=== PATIENT | female | born 1975 | race Caucasian/White ===

== ENCOUNTER 2016-11-28 11:38 | Emergency (ER) | payer OTHER ==
[2016-11-28 12:09] VITALS: TEMP 99.7
[2016-11-28] MEDS ORDERED: amLODIPine 5 MG TAB PO STA (13:18)
--- NOTE | 2016-11-28 13:44 | ED ---
General Adult HPI - General Chief complaint: Recheck/Abnormal Lab/Rx Stated complaint: hypertension Time Seen by Provider: 11/28/16 13:02 Source: patient Mode of arrival: ambulatory Limitations: no limitations - History of Present Illness Initial comments: Is a 41-year-old female with no past medical history presents emergency department for high blood pressure. She went to her primary doctor today and got evaluated and it was noted that her blood pressure was elevated shows she was directed emergency department. She denies any complaints. No chest pain or shortness of breath. No headache. No difficulty with urination area she did state that she had a headache last week however this is since resolved. No other complaints. - Related Data Previous Rx's Medication Instructions Recorded amLODIPine BESYLATE [Norvasc] 5 mg PO DAILY #30 tablet 11/28/16 Allergies Allergy/AdvReac Type Severity Reaction Status Date / Time No Known Allergies Allergy Verified 11/28/16 13:15 Review of Systems ROS Statement: Those systems with pertinent positive or pertinent negative responses have been documented in the HPI. ROS Other: All systems not noted in ROS Statement are negative. Past Medical History Past Medical History: No Reported History History of Any Multi-Drug Resistant Organisms: None Reported Past Surgical History: Cholecystectomy Past Psychological History: No Psychological Hx Reported Smoking Status: Current every day smoker Past Alcohol Use History: Rare Past Drug Use History: None Reported General Exam - General Exam Comments Initial Comments: Constitutional: Awake alert Appears comfortable Head: Normocephalic atraumatic Eyes: no conjunctival injection No scleral icterus EOMI Neck: No JVD Supple Heart: Regular rate rhythm normal S1-S2 no murmurs Lungs: Clear to auscultation bilaterally No wheezing No rales Abdomen: Soft nondistended nontender Extremities: Non edematous DP pulses intact Radial pulses intact Neuro: A&Ox3 No focal neurologic deficits Psych: Appropriate mood and affect Limitations: no limitations Course Vital Signs 11/28/16 11/28/16 12:04 13:27 Temperature 99.7 F H Pulse Rate 72 67 Respiratory 18 16 Rate Blood Pressure 210/119 184/99 O2 Sat by Pulse 99 97 Oximetry EKG Findings - EKG Comments: EKG Findings:: EKG showing normal sinus rhythm with a rate of 63. No ST segment changes. There is a T-wave inversion in lead 3. Other intervals are normal. No ectopy. Medical Decision Making - Medical Decision Making This is a 41-year-old female who presents emergency department for hypertension. Blood work was reviewed and unremarkable. EKG was unremarkable. Blood pressure improved after Norvasc. I'm going to start her on it once a day. She can follow-up with her primary doctor next week to get reevaluated. Told her to return if she has any chest pain, headache, or any other symptoms that she is concerned about. All questions were answered - Lab Data Result diagrams: 11/28/16 13:30 11/28/16 13:30 Lab Results 11/28/16 11/28/16 Range/Units 13:30 13:30 WBC 10.6 (3.8-10.6) k/uL RBC 4.54 (3.80-5.40) m/uL Hgb 13.5 (11.4-16.0) gm/dL Hct 40.0 (34.0-46.0) % MCV 88.2 (80.0-100.0) fL MCH 29.7 (25.0-35.0) pg MCHC 33.6 (31.0-37.0) g/dL RDW 13.9 (11.5-15.5) % Plt Count 222 (150-450) k/uL Neutrophils % 79 % Lymphocytes % 14 % Monocytes % 5 % Eosinophils % 0 % Basophils % 0 % Neutrophils # 8.3 H (1.3-7.7) k/uL Lymphocytes # 1.5 (1.0-4.8) k/uL Monocytes # 0.6 (0-1.0) k/uL Eosinophils # 0.0 (0-0.7) k/uL Basophils # 0.0 (0-0.2) k/uL Sodium 144 (137-145) mmol/L Potassium 3.8 (3.5-5.1) mmol/L Chloride 106 (98-107) mmol/L Carbon Dioxide 24 (22-30) mmol/L Anion Gap 14 mmol/L BUN 6 L (7-17) mg/dL Creatinine 0.71 (0.52-1.04) mg/dL Est GFR (MDRD) Af Amer >60 (>60 ml/min/1.73 sqM) Est GFR (MDRD) Non-Af >60 (>60 ml/min/1.73 sqM) Glucose 104 H (74-99) mg/dL Calcium 9.3 (8.4-10.2) mg/dL Disposition Clinical Impression: Hypertension Disposition: HOME SELF-CARE Condition: Stable Instructions: Hypertension (ED) Prescriptions: amLODIPine BESYLATE [Norvasc] 5 mg PO DAILY #30 tablet Referrals: Cuba Velez MD [Primary Care Provider] - 1-2 days
[2016-11-28 14:01] LABS: Basophils % (A) 0 %; CH 30.9; CHCM 35.2; Eosinophils % (A) 0 %; HDW 3.07; HGB 13.5 gm/dL (11.4-16.0); Luc # (Auto) 0.09; Luc % (Auto) 1; Lymphocytes # (A) 1.5 k/uL (1.0-4.8); Lymphocytes % (A) 14 %; MCH 29.7 pg (25.0-35.0); MCHC 33.6 g/dL (31.0-37.0); MCV 88.2 fL (80.0-100.0); Mean Platelet Volume 7.9; Monocytes # (A) 0.6 k/uL (0-1.0); Monocytes % (A) 5 %; Neutrophils # (A) 8.3 k/uL (1.3-7.7); Neutrophils % (A) 79 %; RBC 4.54 m/uL (3.80-5.40); RDW 13.9 % (11.5-15.5); WBC 10.6 k/uL (3.8-10.6); WBC (Perox) 10.69
[2016-11-28 14:15] LABS: Anion Gap 14 mmol/L; Blood Urea Nitrogen 6 mg/dL (7-17); Calcium 9.3 mg/dL (8.4-10.2); Carbon Dioxide 24 mmol/L (22-30); Chloride 106 mmol/L (98-107); Glucose 104 mg/dL (74-99); Non-African American GFR(MDRD) >60 (>60 ml/min/1.73 sqM); Potassium 3.8 mmol/L (3.5-5.1); Sodium 144 mmol/L (137-145)
[2016-11-28 14:40] VITALS: BP 160/90; PULSE 66; RESP 20
== END 2016-11-28 14:40 | disposition home or self-care (01) ==
LOC: EC 11:38
DX: F17.200 Nicotine dependence, unspecified, uncomplicated (principal); I10 Essential (primary) hypertension
CPT/HCPCS: 36415; 80048; 85025; 93005; 99283

== ENCOUNTER 2021-03-12 22:12 | Observation (INO) | payer OTHER ==
[2021-03-12] MEDS ORDERED: MORPHINE SULFATE 2 MG/ML SYRINGE IVP STA (22:41)
[2021-03-12] MEDS ORDERED: SODIUM CHLORIDE 0.9% 1,000 ML IV STA (22:41)
--- NOTE | 2021-03-12 23:30 | XR ---
EXAMINATION TYPE: XR KUB DATE OF EXAM: 03/12/2021 COMPARISON: NONE HISTORY: Abdominal pain TECHNIQUE: 2 views upright FINDINGS: There is no sign of intestinal obstruction or pneumoperitoneum. Fecal pattern is normal. Th ere are clips from cholecystectomy. Lung bases are clear. There are no pathologic calcifications over the kidneys. IMPRESSION: Nonacute abdomen.
[2021-03-12 23:56] LABS: Anisocytosis Slight; Basophils % (A) 0 %; Eosinophils # (A) 0.1 k/uL (0-0.7); Eosinophils % (A) 1 %; HCT 34.8 % (34.0-46.0); HGB 11.4 gm/dL (11.4-16.0); Hypochromasia Slight; Lymphocytes % (A) 6 %; MCH 28.9 pg (25.0-35.0); MCHC 32.9 g/dL (31.0-37.0); MCV 87.7 fL (80.0-100.0); Mean Platelet Volume 7.3; Monocytes # (A) 0.5 k/uL (0-1.0); Monocytes % (A) 3 %; Neutrophils % (A) 90 %; Platelet Count 259 k/uL (150-450); Poikilocytosis Slight; RBC 3.96 m/uL (3.80-5.40); RDW 16.1 % (11.5-15.5); WBC 15.6 k/uL (3.8-10.6)
--- NOTE | 2021-03-13 00:03 | ED ---
Abdominal Pain HPI - General Chief Complaint: Abdominal Pain Stated Complaint: abd pain Time Seen by Provider: 03/12/21 22:19 Source: patient, family, RN notes reviewed Mode of arrival: ambulatory Limitations: no limitations - History of Present Illness Initial Comments: 45-year-old white female presents to the emergency department with her sister complaining of abdominal pain for one week off and on. Patient states she was seen at [facility] last Saturday and was told she has mild ascites by CT. Patient states they prescribed her Xanax and [place] but she has not taken it. Patient states that the pain is diffuse shooting and feels tight, epigastric at times. Patient states she cannot get comfortable. She seen Dr. Garcia her PMD Saturday and was referred for blood work which she did not complete and also given a GI referral. Patient has history of hypertension, iron deficiency anemia, was recently diagnosed with a melanoma on her left thigh. Surgical history of cholecystectomy in 2006. Patient takes lisinopril and hydrochlorothiazide along with iron daily. MD Complaint: abdominal pain (Sister) -: week(s) (1) Location: diffuse Radiation: epigastric Migration to: no migration Severity scale (1-10): 9 Quality: other Consistency: intermittent Improves With: nothing Worsens With: nothing Associated Symptoms: diarrhea - Related Data Previous Rx's Medication Instructions Recorded amLODIPine BESYLATE [Norvasc] 5 mg PO DAILY #30 tablet 11/28/16 Allergies Allergy/AdvReac Type Severity Reaction Status Date / Time No Known Allergies Allergy Verified 03/12/21 22:17 Review of Systems ROS Statement: Those systems with pertinent positive or pertinent negative responses have been documented in the HPI. ROS Other: All systems not noted in ROS Statement are negative. Past Medical History Past Medical History: Cancer, Hypertension Additional Past Medical History / Comment(s): melanoma History of Any Multi-Drug Resistant Organisms: None Reported Past Surgical History: Cholecystectomy Past Psychological History: No Psychological Hx Reported Smoking Status: Never smoker Past Alcohol Use History: Rare Past Drug Use History: None Reported General Exam Limitations: no limitations General appearance: alert, in no apparent distress Head exam: Present: atraumatic, normocephalic, normal inspection Eye exam: Present: normal appearance, PERRL, EOMI. Absent: scleral icterus, co njunctival injection, periorbital swelling ENT exam: Present: normal exam, normal oropharynx, mucous membranes moist Neck exam: Present: normal inspection, full ROM. Absent: tenderness, meningismus, lymphadenopathy, thyromegaly Respiratory exam: Present: normal lung sounds bilaterally. Absent: respiratory distress, wheezes, rales, rhonchi, stridor, decreased breath sounds Cardiovascular Exam: Present: normal rhythm, tachycardia GI/Abdominal exam: Present: soft, tenderness, normal bowel sounds. Absent: distended, guarding, rebound, rigid, organomegaly, mass, pulsatile mass, hernia Extremities exam: Present: normal inspection, full ROM, normal capillary refill. Absent: tenderness, pedal edema, joint swelling, calf tenderness Back exam: Present: normal inspection, full ROM. Absent: CVA tenderness (R), CVA tenderness (L) Neurological exam: Present: alert, oriented X3, CN II-XII intact Psychiatric exam: Present: anxious Skin exam: Present: warm, dry, intact, normal color. Absent: rash, cyanosis, diaphoretic, erythema Course Vital Signs 03/12/21 22:14 Temperature 98.9 F Pulse Rate 106 H Respiratory 20 Rate Blood Pressure 116/82 O2 Sat by Pulse 99 Oximetry Medical Decision Making - Medical Decision Making Patient's troponin is 0.012, liver enzymes are within normal limits, however WBC count is 15.6 with a left shift. Lactic acid 1.6, Patient states WBC count at [facility] last Saturday was at 11. Patient has been having abnormal vaginal bleeding for 4 months and is being seen by gynecology, recently been put on control pills to help suppress the bleeding. Patient remains uncomfortable and can't find a position of comfort stating that the pain is now in her lower back. CT shows a moderate amount of free fluid in the pelvis and abdomen extending to the right side subphrenic space. The appendix is not directly seen with possibility of appendicitis with rupture. There is no free air. Patient will be admitted with surgical consult. Case discussed with Dr. Cristobal. - Lab Data Result diagrams: 03/12/21 23:48 03/12/21 23:48 Lab Results 03/12/21 03/12/21 03/12/21 Range/Units 23:48 23:48 23:48 WBC 15.6 H (3.8-10.6) k/uL RBC 3.96 (3.80-5.40) m/uL Hgb 11.4 (11.4-16.0) gm/dL Hct 34.8 (34.0-46.0) % MCV 87.7 (80.0-100.0) fL MCH 28.9 (25.0-35.0) pg MCHC 32.9 (31.0-37.0) g/dL RDW 16.1 H (11.5-15.5) % Plt Count 259 (150-450) k/uL MPV 7.3 Neutrophils % 90 % Lymphocytes % 6 % Monocytes % 3 % Eosinophils % 1 % Basophils % 0 % Neutrophils # 14.0 H (1.3-7.7) k/uL Lymphocytes # 1.0 (1.0-4.8) k/uL Monocytes # 0.5 (0-1.0) k/uL Eosinophils # 0.1 (0-0.7) k/uL Basophils # 0.0 (0-0.2) k/uL Hypochromasia Slight Poikilocytosis Slight Anisocytosis Slight PT 10.1 (9.0-12.0) sec INR 0.9 (<1.2) APTT 19.1 L (22.0-30.0) sec Sodium 135 L (137-145) mmol/L Potassium 4.0 (3.5-5.1) mmol/L Chloride 101 (98-107) mmol/L Carbon Dioxide 24 (22-30) mmol/L Anion Gap 10 mmol/L BUN 14 (7-17) mg/dL Creatinine 0.83 (0.52-1.04) mg/dL Est GFR (CKD-EPI)AfAm >90 (>60 ml/min/1.73 sqM) Est GFR (CKD-EPI)NonAf 86 (>60 ml/min/1.73 sqM) Glucose 139 H (74-99) mg/dL Plasma Lactic Acid Morales (0.7-2.0) mmol/L Calcium 8.8 (8.4-10.2) mg/dL Total Bilirubin 0.7 (0.2-1.3) mg/dL AST 21 (14-36) U/L ALT 20 (4-34) U/L Alkaline Phosphatase 70 (38-126) U/L Troponin I (0.000-0.034) ng/mL Total Protein 6.6 (6.3-8.2) g/dL Albumin 3.9 (3.5-5.0) g/dL Amylase 38 (30-110) U/L Lipase 56 (23-300) U/L 03/12/21 03/12/21 Range/Units 23:48 23:48 WBC (3.8-10.6) k/uL RBC (3.80-5.40) m/uL Hgb (11.4-16.0) gm/dL Hct (34.0-46.0) % MCV (80.0-100.0) fL MCH (25.0-35.0) pg MCHC (31.0-37.0) g/dL RDW (11.5-15.5) % Plt Count (150-450) k/uL MPV Neutrophils % % Lymphocytes % % Monocytes % % Eosinophils % % Basophils % % Neutrophils # (1.3-7.7) k/uL Lymphocytes # (1.0-4.8) k/uL Monocytes # (0-1.0) k/uL Eosinophils # (0-0.7) k/uL Basophils # (0-0.2) k/uL Hypochromasia Poikilocytosis Anisocytosis PT (9.0-12.0) sec INR (<1.2) APTT (22.0-30.0) sec Sodium (137-145) mmol/L Potassium (3.5-5.1) mmol/L Chloride (98-107) mmol/L Carbon Dioxide (22-30) mmol/L Anion Gap mmol/L BUN (7-17) mg/dL Creatinine (0.52-1.04) mg/dL Est GFR (CKD-EPI)AfAm (>60 ml/min/1.73 sqM) Est GFR (CKD-EPI)NonAf (>60 ml/min/1.73 sqM) Glucose (74-99) mg/dL Plasma Lactic Acid Morales 1.4 (0.7-2.0) mmol/L Calcium (8.4-10.2) mg/dL Total Bilirubin (0.2-1.3) mg/dL AST (14-36) U/L ALT (4-34) U/L Alkaline Phosphatase (38-126) U/L Troponin I <0.012 (0.000-0.034) ng/mL Total Protein (6.3-8.2) g/dL Albumin (3.5-5.0) g/dL Amylase (30-110) U/L Lipase (23-300) U/L Disposition Clinical Impression: Acute appendicitis Disposition: ADMITTED IP TO THIS HOSP Condition: Fair Is patient prescribed a controlled substance at d/c from ED?: No Referrals: Dexter Green MD [Primary Care Provider] - 1-2 days Decision Date: 03/13/21 Decision Time: 01:42
[2021-03-13 00:06] LABS: ALT 20 U/L (4-34); AST 21 U/L (14-36); African American GFR (CKD) >90 (>60 ml/min/1.73 sqM); Albumin 3.9 g/dL (3.5-5.0); Alkaline Phosphatase 70 U/L (38-126); Amylase 38 U/L (30-110); Anion Gap 10 mmol/L; Blood Urea Nitrogen 14 mg/dL (7-17); Calcium 8.8 mg/dL (8.4-10.2); Carbon Dioxide 24 mmol/L (22-30); Chloride 101 mmol/L (98-107); Glucose 139 mg/dL (74-99); Lipase 56 U/L (23-300); Non-African American GFR(CKD) 86 (>60 ml/min/1.73 sqM); Sodium 135 mmol/L (137-145); Total Bilirubin 0.7 mg/dL (0.2-1.3); Total Protein 6.6 g/dL (6.3-8.2)
[2021-03-13 00:15] LABS: INR 0.9 (<1.2); Prothrombin Time 10.1 sec (9.0-12.0)
[2021-03-13 00:17] LABS: Partial Thromboplastin Time 19.1 sec (22.0-30.0)
--- NOTE | 2021-03-13 01:26 | CT ---
EXAMINATION TYPE: CT abdomen pelvis wo con DATE OF EXAM: 03/13/2021 COMPARISON: None HISTORY: pain CT DLP: 743.8 mGycm Automated exposure control for dose reduction was used. Images obtained from the diaphragm to the floor the pelvis with no contrast. FINDINGS: There is some patchy atelectasis at the lung bases. Heart is borderline enlarged. There is no pericar dial effusion. There is no pleural effusion. Liver and spleen are intact. The bile ducts are not dilated. There is clips from cholecystectomy. The re is no evidence of pancreatic mass. Stomach is intact. There is no adrenal mass. Kidneys have normal size. There is no hydronephrosis. Ureters are not dilat ed. There is no retroperitoneal adenopathy. Bladder distends smoothly. Uterus is anteverted. There is free fluid in the pelvis. There is also some fluid around the liver and in the paracolic gutters. Fl uid density is 13 -19. This is nonspecific. There is no evidence of a bowel obstruction. I see no free air. There is no mesenteric edema. There i s no inguinal hernia. The lumbar vertebra have normal alignment. Disc spaces are fairly normal. Bony pelvis is intact. The hip joints are intact. Appendix is not identified. The terminal ileum appears normal. There is fluid around the cecum. IMPRESSION: No evidence of renal stone or obstruction. There is moderate amount of free fluid in the pelvis and a bdomen and extending up right side to the subphrenic space. Fluid is more on the right side. Appendix not directly seen. No free air. I would consider the possibility of appendicitis with rupture. Other possibilities include PID and ruptured ectopic . Patient has negative test. Patchy atelectasis at the lung bases.
[2021-03-13] MEDS ORDERED: AMPICILLIN-SULBACTAM 3 GM in SODIUM CHLORIDE 0.9% 100 ML IVPB STA (01:45)
[2021-03-13] MEDS ORDERED: NALOXONE 0.4 MG/ML 1 ML VIAL IV PRN (01:46)
[2021-03-13] MEDS ORDERED: MORPHINE SULFATE 4 MG/ML SYRINGE IV PRN (01:46)
[2021-03-13] MEDS ORDERED: ONDANSETRON 4 MG/2 ML VIAL IVP PRN (01:46)
[2021-03-13] MEDS: SODIUM CHLORIDE 0.9% 1,000 ML IV SCH ×3 (02:13→15:29)
[2021-03-13 07:54] LABS: ALT 17 U/L (4-34); AST 16 U/L (14-36); African American GFR (CKD) >90 (>60 ml/min/1.73 sqM); Albumin 3.3 g/dL (3.5-5.0); Albumin/Globulin Ratio 1.3; Alkaline Phosphatase 55 U/L (38-126); Anion Gap 5 mmol/L; Blood Urea Nitrogen 13 mg/dL (7-17); Calcium 7.8 mg/dL (8.4-10.2); Carbon Dioxide 26 mmol/L (22-30); Chloride 104 mmol/L (98-107); Globulin 2.5 g/dL; Glucose 116 mg/dL (74-99); Non-African American GFR(CKD) >90 (>60 ml/min/1.73 sqM); Potassium 3.6 mmol/L (3.5-5.1); Sodium 135 mmol/L (137-145); Total Bilirubin 0.5 mg/dL (0.2-1.3); Total Protein 5.8 g/dL (6.3-8.2)
[2021-03-13 07:55] LABS: Anisocytosis Slight; Basophils % (A) 0 %; Eosinophils # (A) 0.1 k/uL (0-0.7); Eosinophils % (A) 1 %; Hypochromasia Slight; Lymphocytes # (A) 1.6 k/uL (1.0-4.8); Lymphocytes % (A) 19 %; MCH 29.8 pg (25.0-35.0); MCHC 33.9 g/dL (31.0-37.0); Mean Platelet Volume 7.4; Monocytes # (A) 0.4 k/uL (0-1.0); Monocytes % (A) 5 %; Neutrophils # (A) 6.4 k/uL (1.3-7.7); Neutrophils % (A) 74 %; Platelet Count 223 k/uL (150-450); Poikilocytosis Slight; RBC 3.19 m/uL (3.80-5.40); RDW 16.2 % (11.5-15.5); WBC 8.6 k/uL (3.8-10.6)
[2021-03-13 08:14] LABS: HGB 9.5 gm/dL (11.4-16.0)
[2021-03-13] MEDS ORDERED: ALPRAZolam 0.25 MG TAB PO PRN (11:02)
--- NOTE | 2021-03-13 12:49 | P.GSCN ---
History of Present Illness Consult date: 03/13/21 History of present illness: 45 year old female who was recently diagnosed with melanoma and is in the process of getting it worked up as an outpatient at [facility] Presents to hospital with generalized abdominal discomfort some mild nausea and emesis. No change in BM no history of fever. No recent illness. Patient states she was at [facility] one week ago and was told she had ascities. She denies alcohol use. CT today shows fluid throughout abdomen, no free air, but appendix was not visualized. Because appendix was not visualized general surgery was consulted as radiology report stated appendicitis can not be ruled out Past Medical History Past Medical History: Cancer, Hypertension Additional Past Medical History / Comment(s): melanoma History of Any Multi-Drug Resistant Organisms: None Reported Past Surgical History: Cholecystectomy Past Psychological History: No Psychological Hx Reported Smoking Status: Never smoker Past Alcohol Use History: Rare Past Drug Use History: None Reported Medications and Allergies Home Medications Medication Instructions Recorded Confirmed Type ALPRAZolam [Xanax] 0.25 mg PO TID PRN 03/13/21 03/13/21 History Ferrous Sulfate [Feosol] 325 mg PO DAILY@1200 03/13/21 03/13/21 History HYDROcodone/APAP 5-325MG [[place] 1 tab PO Q6HR PRN 03/13/21 03/13/21 History 5-325] Lisinopril [Prinivil] 10 mg PO DAILY 03/13/21 03/13/21 History [place]-Liny[place] 1 tab PO DAILY@1200 03/13/21 03/13/21 History hydroCHLOROthiazide 25 mg PO DAILY 03/13/21 03/13/21 History Allergies Allergy/AdvReac Type Severity Reaction Status Date / Time No Known Allergies Allergy Verified 03/13/21 07:08 Surgical - Exam Osteopathic Statement: *. No significant issues noted on an osteopathic structural exam other than those noted in the History and Physical/Consult. Vital Signs Temp Pulse Resp BP Pulse Ox 98.9 F 106 H 20 116/82 99 03/12/21 22:14 03/12/21 22:14 03/12/21 22:14 03/12/21 22:14 03/12/21 22:14 - General well developed, well nourished, no distress - Neck trachea midline - Respiratory normal expansion, normal respiratory effort - Abdomen S/NT/ND no RRG Abdomen: soft - Genitourinary No palpable lyphadenopathy in groin - Neurologic normal coordination, normal sensation - Psychiatric oriented to time, oriented to person, oriented to place Results - Labs 03/13/21 07:30 03/13/21 07:30 Abnormal Lab Results - Last 24 Hours (Table) 03/12/21 03/12/21 03/12/21 Range/Units 23:48 23:48 23:48 WBC 15.6 H (3.8-10.6) k/uL RBC (3.80-5.40) m/uL Hgb (11.4-16.0) gm/dL Hct (34.0-46.0) % RDW 16.1 H (11.5-15.5) % Neutrophils # 14.0 H (1.3-7.7) k/uL APTT 19.1 L (22.0-30.0) sec Sodium 135 L (137-145) mmol/L Glucose 139 H (74-99) mg/dL Calcium (8.4-10.2) mg/dL Total Protein (6.3-8.2) g/dL Albumin (3.5-5.0) g/dL 03/13/21 03/13/21 Range/Units 07:30 07:30 WBC (3.8-10.6) k/uL RBC 3.19 L (3.80-5.40) m/uL Hgb 9.5 L D (11.4-16.0) gm/dL Hct 28.0 L (34.0-46.0) % RDW 16.2 H (11.5-15.5) % Neutrophils # (1.3-7.7) k/uL APTT (22.0-30.0) sec Sodium 135 L (137-145) mmol/L Glucose 116 H (74-99) mg/dL Calcium 7.8 L (8.4-10.2) mg/dL Total Protein 5.8 L (6.3-8.2) g/dL Albumin 3.3 L (3.5-5.0) g/dL Diabetes panel 03/12/21 03/13/21 Range/Units 23:48 07:30 Sodium 135 L 135 L (137-145) mmol/L Potassium 4.0 3.6 (3.5-5.1) mmol/L Chloride 101 104 (98-107) mmol/L Carbon Dioxide 24 26 (22-30) mmol/L BUN 14 13 (7-17) mg/dL Creatinine 0.83 0.72 (0.52-1.04) mg/dL Glucose 139 H 116 H (74-99) mg/dL Calcium 8.8 7.8 L (8.4-10.2) mg/dL AST 21 16 (14-36) U/L ALT 20 17 (4-34) U/L Alkaline Phosphatase 70 55 (38-126) U/L Total Protein 6.6 5.8 L (6.3-8.2) g/dL Albumin 3.9 3.3 L (3.5-5.0) g/dL Calcium panel 03/12/21 03/13/21 Range/Units 23:48 07:30 Calcium 8.8 7.8 L (8.4-10.2) mg/dL Albumin 3.9 3.3 L (3.5-5.0) g/dL Pituitary panel 03/12/21 03/13/21 Range/Units 23:48 07:30 Sodium 135 L 135 L (137-145) mmol/L Potassium 4.0 3.6 (3.5-5.1) mmol/L Chloride 101 104 (98-107) mmol/L Carbon Dioxide 24 26 (22-30) mmol/L BUN 14 13 (7-17) mg/dL Creatinine 0.83 0.72 (0.52-1.04) mg/dL Glucose 139 H 116 H (74-99) mg/dL Calcium 8.8 7.8 L (8.4-10.2) mg/dL Adrenal panel 03/12/21 03/13/21 Range/Units 23:48 07:30 Sodium 135 L 135 L (137-145) mmol/L Potassium 4.0 3.6 (3.5-5.1) mmol/L Chloride 101 104 (98-107) mmol/L Carbon Dioxide 24 26 (22-30) mmol/L BUN 14 13 (7-17) mg/dL Creatinine 0.83 0.72 (0.52-1.04) mg/dL Glucose 139 H 116 H (74-99) mg/dL Calcium 8.8 7.8 L (8.4-10.2) mg/dL Total Bilirubin 0.7 0.5 (0.2-1.3) mg/dL AST 21 16 (14-36) U/L ALT 20 17 (4-34) U/L Alkaline Phosphatase 70 55 (38-126) U/L Total Protein 6.6 5.8 L (6.3-8.2) g/dL Albumin 3.9 3.3 L (3.5-5.0) g/dL Assessment and Plan Assessment: Ascities New diagnosis of melanoma in left leg Plan: Patient does not have physical exam consistent with appendicitis nor does she have CT showing clinical signs of appendicitis. Concern for new finding of ascities in patient who is not a drinker and has new diagnosis of melanoma. No liver mets seen on CT however. Recommend ABX and serial abdominal exam. No plan for acute surgical intervention.
[2021-03-13] MEDS: FERROUS SULFATE 325 MG TAB PO SCH ×2 (13:04→13:09)
[2021-03-13] MEDS: AMPICILLIN-SULBACTAM 3 GM in SODIUM CHLORIDE 0.9% 100 ML IVPB SCH ×2 (13:05→17:46)
--- NOTE | 2021-03-13 13:20 | P.HPIM ---
History of Present Illness 45-year-old pleasant female came in with the complaints of severe abdominal pain started 2 days ago which improved at this time sharp in nature 8/and in severity. Patient was having some nausea vomiting as well. Patient had an abdo roseanna CT which showed fluid in the abdomen etiology of this fluid is not clear. Patient had ovarian cyst that was seen about a week ago when she presented with similar symptoms to [facility]. Appendix with was not visualized because of which are radiologists believe patient may have appendicitis although patient's abdomen is soft no rebound or rigidity no tenderness or pain improved at this time patient doesn't have any fever but had leukocytosis which resolved at this time. Patient's hemoglobin was 11.4 came down to 9.5 this appears to be hemodynamically 3 affect without any evidence of bleeding. Review of Systems REVIEW OF SYSTEMS: CONSTITUTIONAL: No fever, no malaise, no fatigue. HEENT: No recent visual problems or hearing problems. Denied any sore throat. CARDIOVASCULAR: No chest pain, orthopnea, PND, no palpitations, no syncope. PULMONARY: No shortness of breath, no cough, no hemoptysis. GASTROINTESTINAL: As mentioned in HPI NEUROLOGICAL: No headaches, no weakness, no numbness. HEMATOLOGICAL: Denies any bleeding or petechiae. GENITOURINARY: Denies any burning micturition, frequency, or urgency. MUSCULOSKELETAL/RHEUMATOLOGICAL: Denies any joint pain, swelling, or any muscle pain. ENDOCRINE: Denies any polyuria or polydipsia. The rest of the 14-point review of systems is negative. Past Medical History Past Medical History: Cancer, Hypertension Additional Past Medical History / Comment(s): melanoma History of Any Multi-Drug Resistant Organisms: None Reported Past Surgical History: Cholecystectomy Past Psychological History: No Psychological Hx Reported Smoking Status: Never smoker Past Alcohol Use History: Rare Past Drug Use History: None Reported Medications and Allergies Home Medications Medication Instructions Recorded Confirmed Type ALPRAZolam [Xanax] 0.25 mg PO TID PRN 03/13/21 03/13/21 History Ferrous Sulfate [Feosol] 325 mg PO DAILY@1200 03/13/21 03/13/21 History HYDROcodone/APAP 5-325MG [[place] 1 tab PO Q6HR PRN 03/13/21 03/13/21 History 5-325] Lisinopril [Prinivil] 10 mg PO DAILY 03/13/21 03/13/21 History [place]-Linyah 1 tab PO DAILY@1200 03/13/21 03/13/21 History hydroCHLOROthiazide 25 mg PO DAILY 03/13/21 03/13/21 History Allergies Allergy/AdvReac Type Severity Reaction Status Date / Time No Known Allergies Allergy Verified 03/13/21 07:08 Physical Exam Vitals: Vital Signs Temp Pulse Resp BP Pulse Ox 03/13/21 07:42 98.6 F 78 24 154/84 96 03/13/21 05:47 76 16 114/70 99 03/12/21 22:14 98.9 F 106 H 20 116/82 99 Intake and Output 03/12/21 03/13/21 03/13/21 22:59 06:59 14:59 Other: Weight 97.522 kg PHYSICAL EXAMINATION: GENERAL: The patient is alert and oriented x3, not in any acute distress. Well developed, well nourished. HEENT: Pupils are round and equally reacting to light. EOMI. No scleral icterus. No conjunctival pallor. Normocephalic, atraumatic. No pharyngeal erythema. No thyromegaly. CARDIOVASCULAR: S1 and S2 present. No murmurs, rubs, or gallops. PULMONARY: Chest is clear to auscultation, no wheezing or crackles. ABDOMEN: Soft, nontender, nondistended, normoactive bowel sounds. No palpable organomegaly. MUSCULOSKELETAL: No joint swelling or deformity. EXTREMITIES: No cyanosis, clubbing, or pedal edema. NEUROLOGICAL: Gross neurological examination did not reveal any focal deficits. SKIN: No rashes. Results CBC & Chem 7: 03/13/21 07:30 03/13/21 07:30 Labs: Abnormal Lab Results - Last 24 Hours (Table) 03/12/21 03/12/21 03/12/21 Range/Units 23:48 23:48 23:48 WBC 15.6 H (3.8-10.6) k/uL RBC (3.80-5.40) m/uL Hgb (11.4-16.0) gm/dL Hct (34.0-46.0) % RDW 16.1 H (11.5-15.5) % Neutrophils # 14.0 H (1.3-7.7) k/uL APTT 19.1 L (22.0-30.0) sec Sodium 135 L (137-145) mmol/L Glucose 139 H (74-99) mg/dL Calcium (8.4-10.2) mg/dL Total Protein (6.3-8.2) g/dL Albumin (3.5-5.0) g/dL 03/13/21 03/13/21 Range/Units 07:30 07:30 WBC (3.8-10.6) k/uL RBC 3.19 L (3.80-5.40) m/uL Hgb 9.5 L D (11.4-16.0) gm/dL Hct 28.0 L (34.0-46.0) % RDW 16.2 H (11.5-15.5) % Neutrophils # (1.3-7.7) k/uL APTT (22.0-30.0) sec Sodium 135 L (137-145) mmol/L Glucose 116 H (74-99) mg/dL Calcium 7.8 L (8.4-10.2) mg/dL Total Protein 5.8 L (6.3-8.2) g/dL Albumin 3.3 L (3.5-5.0) g/dL Assessment and Plan Plan: Abdominal pain which resolved and patient has moderate ascites: Etiology of this ascites is not clear may be a ruptured ovarian cyst. Although patient doesn't appear to have appendicitis patient was evaluated by general surgery. We will discuss with radiologist regarding the the possibility of also some guided paracentesis to analyze the ascites fluid. Neurosurgery is recommending monitoring with antibiotics. -Recent diagnosis of melanoma. -Hypertension: Patient will be resumed on home medications Heparin DVT prophylaxis early ambulation
[2021-03-13 13:30] LABS: Anisocytosis Slight; HGB 9.7 gm/dL (11.4-16.0); Hypochromasia Slight; MCH 29.5 pg (25.0-35.0); MCHC 33.5 g/dL (31.0-37.0); MCV 87.9 fL (80.0-100.0); Mean Platelet Volume 7.1; Platelet Count 235 k/uL (150-450); Poikilocytosis Slight; RDW 16.1 % (11.5-15.5); WBC 8.6 k/uL (3.8-10.6)
[2021-03-13 14:45] LABS: Appearance,Urine Cloudy (Clear); Bacteria,Urine Rare /hpf; Bilirubin,Urine Negative (Negative); Blood,Urine Moderate (Negative); Color,Urine Yellow; Glucose,Urine (UA) Negative (Negative); Hyaline Casts,Urine 1 /lpf (0-2); Ketones,Urine Negative (Negative); Leukocyte Esterase,Urine Moderate (Negative); Mucus,Urine Few /hpf; Nitrite,Urine Negative (Negative); PH, Urine 5.5 (5.0-8.0); Protein,Urine Trace (Negative); RBC,Urine 22 /hpf (0-5); Specific Gravity,Urine 1.026 (1.001-1.035); Squamous Epithelial Cell,Urine 8 /hpf (0-4); Urobilinogen,Urine <2.0 mg/dL (<2.0); WBC,Urine 18 /hpf (0-5)
--- NOTE | 2021-03-13 16:23 | US ---
EXAMINATION TYPE: US abdomen limited DATE OF EXAM: 03/13/2021 COMPARISON: NONE CLINICAL HISTORY: Ascites. Evaluate for ascites No evidence of significant fluid within abdominal quadrants, minimal pocket = 2.3cm within RLQ IMPRESSION: 1. Small pocket of ascites in the right lower quadrant measuring 2.3 cm.
[2021-03-14] MEDS: AMPICILLIN-SULBACTAM 3 GM in SODIUM CHLORIDE 0.9% 100 ML IVPB SCH ×3 (00:20→11:55)
[2021-03-14] MEDS: SODIUM CHLORIDE 0.9% 1,000 ML IV SCH ×2 (02:19→10:58)
[2021-03-14 03:48] VITALS: BP 98/62
[2021-03-14 07:38] VITALS: PULSE 68; RESP 16; TEMP 98.2
[2021-03-14] MEDS ORDERED: lisinopriL 10 MG TAB PO SCH (09:00)
--- NOTE | 2021-03-14 10:51 | P.PN ---
Subjective Progress Note Date: 03/14/21 Patient is feeling much better today she denies any abdominal pain. She's tolerating a diet she has no complaints Objective - Vital Signs Vital signs: Vital Signs Temp 98.2 F 03/14/21 07:00 Pulse 68 03/14/21 07:00 Resp 16 03/14/21 08:00 BP 98/62 03/14/21 07:00 Pulse Ox 95 03/14/21 07:00 Intake & Output 03/13/21 03/14/21 03/14/21 18:59 06:59 18:59 Intake Total 130 200 Balance 130 200 Weight 97.522 kg Intake: IV 130 Sodium Chloride 0.9% 1, 130 000 ml @ 130 mls/hr IV . Q7H42M [facility] Rx#:[id number] Oral 200 Other: Voiding Method Toilet - Constitutional General appearance: Present: cooperative - Cardiovascular Rhythm: regular - Gastrointestinal Gastrointestinal Comment(s): Soft nontender nondistended - Labs CBC & Chem 7: 03/13/21 13:14 03/13/21 07:30 Labs: Abnormal Lab Results - Last 24 Hours (Table) 03/13/21 03/13/21 Range/Units 13:14 14:33 RBC 3.30 L (3.80-5.40) m/uL Hgb 9.7 L (11.4-16.0) gm/dL Hct 29.0 L (34.0-46.0) % RDW 16.1 H (11.5-15.5) % Urine Appearance Cloudy H (Clear) Urine Protein Trace H (Negative) Urine Blood Moderate H (Negative) Ur Leukocyte Esterase Moderate H (Negative) Urine RBC 22 H (0-5) /hpf Urine WBC 18 H (0-5) /hpf Ur Squamous Epith Cells 8 H (0-4) /hpf Urine Bacteria Rare H (None) /hpf Urine Mucus Few H (None) /hpf Microbiology - Last 24 Hours (Table) 03/13/21 14:33 Urine Culture - Preliminary Urine,Voided Assessment and Plan Assessment: Ascities New diagnosis of melanoma in left leg Plan: Patient's feeling better today. White count was normal today. This is unlikely to be due secondary to appendicitis. No plans for any surgical management at this time.
[2021-03-14] MEDS: FERROUS SULFATE 325 MG TAB PO SCH (11:54)
--- NOTE | 2021-03-14 13:11 | P.DS ---
Providers Date of admission: 03/13/21 01:32 Attending physician: Alethea Clark Consults: 03/13/21 01:48 Consult Physician Urgent Consulting Provider: Kael Ventura Consult Reason/Comments: appendicitis Do you want consulting provider notified?: Yes Primary care physician: [facility] Course: 45-year-old pleasant female came in with the complaints of severe abdominal pain started 2 days ago which improved at this time sharp in nature 8/and in severity. Patient was having some nausea vomiting as well. Patient had an abdominal CT which showed fluid in the abdomen etiology of this fluid is not clear. Patient had ovarian cyst that was seen about a week ago when she presented with similar symptoms to [facility]. Appendix with was not visualized because of which are radiologists believe patient may have appendicitis although patient's abdomen is soft no rebound or rigidity no tenderness or pain improved at this time patient doesn't have any fever but had leukocytosis which resolved at this time. Patient's hemoglobin was 11.4 came down to 9.5 this appears to be hemodynamically 3 affect without any evidence of bleeding. 03/14/2021 Because of ascites in the abdomen and obtain an ultrasound for possible ultrasound-guided paracentesis. Although patient appears to have only 2.5 centimeter pocket of fluid. Patient most probably ruptured ovarian cyst. Patient will not need any antibiotics discussed with the jaw surgery patient will be discharged today. Patient blood pressures are low patient I was asked to check the blood pressures 3 times a day and maintain a diary and take it to PCPs office. Patient may need a very low-dose of lisinopril hydrochlorothiazide will be discontinued for now will hold off on hydrochlorothiazide as well. PHYSICAL EXAMINATION: GENERAL: The patient is alert and oriented x3, not in any acute distress. Well developed, well nourished. HEENT: Pupils are round and equally reacting to light. EOMI. No scleral icterus. No conjunctival pallor. Normocephalic, atraumatic. No pharyngeal erythema. No thyromegaly. CARDIOVASCULAR: S1 and S2 present. No murmurs, rubs, or gallops. PULMONARY: Chest is clear to auscultation, no wheezing or crackles. ABDOMEN: Soft, nontender, nondistended, normoactive bowel sounds. No palpable organomegaly. MUSCULOSKELETAL: No joint swelling or deformity. EXTREMITIES: No cyanosis, clubbing, or pedal edema. NEUROLOGICAL: Gross neurological examination did not reveal any focal deficits. SKIN: No rashes. Assessment and Plan Plan: Abdominal pain which resolved probably due to ruptured ovarian cyst patient will not require any antibiotics -Recent diagnosis of melanoma. -Hypertension: Management as mentioned above Patient Condition at Discharge: Fair Plan - Discharge Summary Discharge Rx Participant: No New Discharge Prescriptions: Continue [place] 1 tab PO DAILY@1200 ALPRAZolam [Xanax] 0.25 mg PO TID PRN PRN Reason: Anxiety HYDROcodone/APAP 5-325MG [[place] 5-325] 1 tab PO Q6HR PRN PRN Reason: Pain Ferrous Sulfate [Iron (65 MG Elemental)] 325 mg PO DAILY@1200 Discontinued hydroCHLOROthiazide 25 mg PO DAILY Lisinopril [Prinivil] 10 mg PO DAILY Discharge Medication List ALPRAZolam [Xanax] 0.25 mg PO TID PRN 03/13/21 [History] Ferrous Sulfate [Iron (65 MG Elemental)] 325 mg PO DAILY@1200 03/13/21 [History] HYDROcodone/APAP 5-325MG [[place] 5-325] 1 tab PO Q6HR PRN 03/13/21 [History] [place] 1 tab PO DAILY@1200 03/13/21 [History] Follow up Appointment(s)/Referral(s): Dexter Green MD [Primary Care Provider] - 3 Days Discharge Disposition: HOME SELF-CARE
== END 2021-03-14 13:46 | disposition home or self-care (01) ==
LOC: EC 22:12 → 6NMEDSUR 03-13 01:32
PROVIDERS: ADMIT Internal Medicine; ATTEND Internal Medicine
DX: R10.9 Unspecified abdominal pain (principal); N83.209 Unspecified ovarian cyst, unspecified side; R18.8 Other ascites; C43.72 Malignant melanoma of left lower limb, including hip; J98.11 Atelectasis; R11.2 Nausea with vomiting, unspecified; I10 Essential (primary) hypertension; Z20.822 Contact with and (suspected) exposure to COVID-19; Z79.3 Long term (current) use of hormonal contraceptives; Z79.899 Other long term (current) drug therapy; Z90.49 Acquired absence of other specified parts of digestive tract
CPT/HCPCS: 96366 ×2; 96365; 96375; 99285; 36415; 93005; 80053 ×2; 82150; 83605; 83690; 84484; 85025 ×2; 85027; 85610; 85730; 81001; 87086; 87635; 74018; 76705; 74176; G0378 ×2; J2270; J0295 ×2; J1790

== ENCOUNTER 2021-12-22 15:13 | Emergency (ER) | payer OTHER ==
[2021-12-22 15:29] VITALS: TEMP 97.7
[2021-12-22] MEDS ORDERED: SODIUM CHLORIDE 0.9% 1,000 ML IV STA (16:19)
--- NOTE | 2021-12-22 16:24 | ED ---
General Adult HPI - General Source: patient, RN notes reviewed, old records reviewed Mode of arrival: wheelchair Limitations: no limitations - History of Present Illness -: hour(s) (12) Location: abdomen (Diffuse) Radiation: non-radiation Severity scale (1-10): 0 Consistency: intermittent, now resolved Improves with: none Worsens with: none Associated Symptoms: nausea/vomiting (bile) <Rigoberto Jackson - Last Filed: 12/22/21 20:40> <Gaby Ruffin - Last Filed: 12/24/21 16:05> - General Chief complaint: Abdominal Pain Stated complaint: Abdominal Pain,Numbness in Hands/Legs Time Seen by Provider: 12/22/21 16:12 - History of Present Illness Initial comments: 46-year-old female alert and oriented 4 presents to the emergency room with a family member complaining of generalized abdominal pain. Patient she states that she also had an episode of vomiting was yellow in color today. She denies any fevers or diarrhea. She states that the pain woke her at 4 AM and has been intermittent. She does have a history of melanoma and was seen at [facility] and he stated that he had spread to her left inguinal lymph nodes she states that he has also been seen for her abdominal pain in the past but was not diagnosed with appendicitis but she has had a cholecystectomy in the past. She was seen by her primary care doctor yesterday for hypertension. Put her back, a pill of hydrochlorothiazide that she had no pain at that time. (Rigoberto Jackson) - Related Data Home Medications Medication Instructions Recorded Confirmed ALPRAZolam [Xanax] 0.25 mg PO TID PRN 03/13/21 12/24/21 HYDROcodone/APAP 5-325MG [[place] 1 tab PO Q6HR PRN 03/13/21 12/24/21 5-325] Lisinopril-Hctz 20-12.5 mg 1 tab PO DAILY 12/22/21 12/24/21 [Zestoretic 20-12.5] Norg-Ethin Estradiol 0.25-0.035mg 1 tab PO DAILY 12/22/21 12/24/21 Pedi Multivit No.25/Folic Acid 300 mcg PO DAILY 12/22/21 12/24/21 [Flintstones Multivit Chew Tab] Ketoconazole 2% Cream [Nizoral 2%] 1 applic TOPICAL BID PRN 12/24/21 12/24/21 Allergies Allergy/AdvReac Type Severity Reaction Status Date / Time No Known Allergies Allergy Verified 12/24/21 14:44 Review of Systems ROS Other: All systems not noted in ROS Statement are negative. <Rigoberto Jackson - Last Filed: 12/22/21 20:40> ROS Other: All systems not noted in ROS Statement are negative. <Gaby Ruffin - Last Filed: 12/24/21 16:05> ROS Statement: Those systems with pertinent positive or pertinent negative responses have been documented in the HPI. Past Medical History Past Medical History: Cancer, Hypertension Additional Past Medical History / Comment(s): melanoma History of Any Multi-Drug Resistant Organisms: None Reported Past Surgical History: Cholecystectomy Past Anesthesia/Blood Transfusion Reactions: No Reported Reaction Past Psychological History: No Psychological Hx Reported Smoking Status: Never smoker - Past Family History Father Family Medical History: Coronary Artery Disease (CAD), Hypertension Additional Family Medical History / Comment(s): Father is . Mother Family Medical History: Hyperlipidemia, Hypertension, Thyroid Disorder <Rigoberto Jackson - Last Filed: 12/22/21 20:40> General Exam Limitations: no limitations General appearance: alert, in no apparent distress Head exam: Present: atraumatic, normocephalic, normal inspection Eye exam: Present: normal appearance. Absent: scleral icterus, conjunctival injection ENT exam: Present: normal exam, normal oropharynx, mucous membranes moist Neck exam: Present: normal inspection, full ROM. Absent: tenderness, meningismus, lymphadenopathy Respiratory exam: Present: normal lung sounds bilaterally. Absent: respiratory distress, wheezes, rales, rhonchi, stridor, chest wall tenderness, accessory muscle use, decreased breath sounds Cardiovascular Exam: Present: regular rate, normal rhythm, normal heart sounds. Absent: JVD GI/Abdominal exam: Present: soft. Absent: distended, tenderness, guarding, rebound, rigid Extremities exam: Present: normal inspection, normal capillary refill. Absent: tenderness, pedal edema, calf tenderness Back exam: Present: normal inspection, full ROM, other (scar noted to left mid back from melanoma excision). Absent: tenderness, CVA tenderness (R), CVA tenderness (L) Neurological exam: Present: alert, oriented X3 Psychiatric exam: Present: normal affect, normal mood Skin exam: Present: warm, dry, intact, normal color. Absent: cyanosis, di aphoretic <Rigoberto Jackson - Last Filed: 12/22/21 20:40> Course Vital Signs 12/22/21 12/22/21 15:22 20:28 Temperature 97.7 F Pulse Rate 88 74 Respiratory 18 16 Rate Blood Pressure 98/63 111/61 O2 Sat by Pulse 97 96 Oximetry Medical Decision Making - Lab Data Result diagrams: 12/22/21 16:28 12/22/21 16:28 <Rigoberto Jackson - Last Filed: 12/22/21 20:40> - Lab Data Result diagrams: 12/22/21 16:28 12/22/21 16:28 <EvangelistivanStephaneGaby Koko - Last Filed: 12/24/21 16:05> - Medical Decision Making 46-year-old female presents to the emergency room with abdominal pain that started today with diarrhea. She denies any hematochezia or hematemesis. She denies any fevers. She does have a history of cholecystectomy. White blood cell count is elevated at 18,000 with a left shift. Electrolytes are unremarkable. Her lactic acid level is elevated at 3.0. Urinalysis shows no evidence of infection or dehydration. Patient was given IV fluids. She has no further diarrhea or abdominal pain at this time. CT of the abdomen and pelvis shows no pleural effusion. There is mild fatty infiltrate of the liver. There are evidence of clips from a cholecystectomy. No pancreatic masses. No hydronephrosis. No evidence of free air. No evidence of bowel obstruction. Appendix is not definitely seen but no significant appendix noted. There is mild wall thickening of the small bowel which could relate to inflammatory bowel disease compared to exam dated 03/13/2021. Patient states that she has seen Dr. Herrera in the past. She was instructed to contact her PCP tomorrow for follow-up and encouraged to Dr Herrera for possible colo noscopy. Increase her fluid intake and return to the emergency room with any new or concerning symptoms (Rigoberto Jackson) I was available for consultation in the emergency department. The history and physical exam were done by the midlevel provider. I was consulted for this [facility]. I reviewed the case with the midlevel provider and based on their presentation of the patient, I agree with the assessment, medical decision making and plan of care as documented. Chart was dictated using [employer] dictation software. Attempts were made to correct any dictation errors however some typographical errors may persist. (Gaby Ruffin) - Lab Data Lab Results 12/22/21 12/22/21 12/22/21 Range/Units 16:28 16:28 16:28 WBC 18.8 H (3.8-10.6) k/uL RBC 5.04 (3.80-5.40) m/uL Hgb 13.9 (11.4-16.0) gm/dL Hct 43.9 (34.0-46.0) % MCV 87.1 (80.0-100.0) fL MCH 27.5 (25.0-35.0) pg MCHC 31.6 (31.0-37.0) g/dL RDW 16.1 H (11.5-15.5) % Plt Count 380 (150-450) k/uL MPV 7.8 Neutrophils % 88 % Lymphocytes % 9 % Monocytes % 2 % Eosinophils % 0 % Basophils % 0 % Neutrophils # 16.6 H (1.3-7.7) k/uL Lymphocytes # 1.6 (1.0-4.8) k/uL Monocytes # 0.4 (0-1.0) k/uL Eosinophils # 0.0 (0-0.7) k/uL Basophils # 0.0 (0-0.2) k/uL Hypochromasia Slight Anisocytosis Slight PT 9.9 (9.0-12.0) sec INR 0.9 (<1.2) APTT 20.0 L (22.0-30.0) sec Sodium 134 L (137-145) mmol/L Potassium 3.7 (3.5-5.1) mmol/L Chloride 102 (98-107) mmol/L Carbon Dioxide 17 L (22-30) mmol/L Anion Gap 15 mmol/L BUN 12 (7-17) mg/dL Creatinine 1.02 (0.52-1.04) mg/dL Est GFR (CKD-EPI)AfAm 77 (>60 ml/min/1.73 sqM) Est GFR (CKD-EPI)NonAf 67 (>60 ml/min/1.73 sqM) Glucose 148 H (74-99) mg/dL Lactic Ac Sepsis Rflx Plasma Lactic Acid Morales (0.7-2.0) mmol/L Calcium 8.4 (8.4-10.2) mg/dL Total Bilirubin 0.9 (0.2-1.3) mg/dL AST 23 (14-36) U/L ALT 14 (4-34) U/L Alkaline Phosphatase 66 (38-126) U/L Troponin I (0.000-0.034) ng/mL C-Reactive Protein (<1.0) mg/dL Total Protein 6.7 (6.3-8.2) g/dL Albumin 3.7 (3.5-5.0) g/dL Amylase 40 (30-110) U/L Lipase 80 (23-300) U/L Urine Color Urine Appearance (Clear) Urine pH (5.0-8.0) Ur Specific Mcdade (1.001-1.035) Urine Protein (Negative) Urine Glucose (UA) (Negative) Urine Ketones (Negative) Urine Blood (Negative) Urine Nitrite (Negative) Urine Bilirubin (Negative) Urine Urobilinogen (<2.0) mg/dL Ur Leukocyte Esterase (Negative) Urine RBC (0-5) /hpf Urine WBC (0-5) /hpf Ur Squamous Epith Cells (0-4) /hpf Hyaline Casts (0-2) /lpf Urine Mucus (None) /hpf 12/22/21 12/22/21 12/22/21 Range/Units 16:28 16:28 16:28 WBC (3.8-10.6) k/uL RBC (3.80-5.40) m/uL Hgb (11.4-16.0) gm/dL Hct (34.0-46.0) % MCV (80.0-100.0) fL MCH (25.0-35.0) pg MCHC (31.0-37.0) g/dL RDW (11.5-15.5) % Plt Count (150-450) k/uL MPV Neutrophils % % Lymphocytes % % Monocytes % % Eosinophils % % Basophils % % Neutrophils # (1.3-7.7) k/uL Lymphocytes # (1.0-4.8) k/uL Monocytes # (0-1.0) k/uL Eosinophils # (0-0.7) k/uL Basophils # (0-0.2) k/uL Hypochromasia Anisocytosis PT (9.0-12.0) sec INR (<1.2) APTT (22.0-30.0) sec Sodium (137-145) mmol/L Potassium (3.5-5.1) mmol/L Chloride (98-107) mmol/L Carbon Dioxide (22-30) mmol/L Anion Gap mmol/L BUN (7-17) mg/dL Creatinine (0.52-1.04) mg/dL Est GFR (CKD-EPI)AfAm (>60 ml/min/1.73 sqM) Est GFR (CKD-EPI)NonAf (>60 ml/min/1.73 sqM) Glucose (74-99) mg/dL Lactic Ac Sepsis Rflx Plasma Lactic Acid Morales 3.0 H* (0.7-2.0) mmol/L Calcium (8.4-10.2) mg/dL Total Bilirubin (0.2-1.3) mg/dL AST (14-36) U/L ALT (4-34) U/L Alkaline Phosphatase (38-126) U/L Troponin I <0.012 (0.000-0.034) ng/mL C-Reactive Protein 3.4 H (<1.0) mg/dL Total Protein (6.3-8.2) g/dL Albumin (3.5-5.0) g/dL Amylase (30-110) U/L Lipase (23-300) U/L Urine Color Urine Appearance (Clear) Urine pH (5.0-8.0) Ur Specific Mcdade (1.001-1.035) Urine Protein (Negative) Urine Glucose (UA) (Negative) Urine Ketones (Negative) Urine Blood (Negative) Urine Nitrite (Negative) Urine Bilirubin (Negative) Urine Urobilinogen (<2.0) mg/dL Ur Leukocyte Esterase (Negative) Urine RBC (0-5) /hpf Urine WBC (0-5) /hpf Ur Squamous Epith Cells (0-4) /hpf Hyaline Casts (0-2) /lpf Urine Mucus (None) /hpf 12/22/21 12/22/21 Range/Units 17:07 19:41 WBC (3.8-10.6) k/uL RBC (3.80-5.40) m/uL Hgb (11.4-16.0) gm/dL Hct (34.0-46.0) % MCV (80.0-100.0) fL MCH (25.0-35.0) pg MCHC (31.0-37.0) g/dL RDW (11.5-15.5) % Plt Count (150-450) k/uL MPV Neutrophils % % Lymphocytes % % Monocytes % % Eosinophils % % Basophils % % Neutrophils # (1.3-7.7) k/uL Lymphocytes # (1.0-4.8) k/uL Monocytes # (0-1.0) k/uL Eosinophils # (0-0.7) k/uL Basophils # (0-0.2) k/uL Hypochromasia Anisocytosis PT (9.0-12.0) sec INR (<1.2) APTT (22.0-30.0) sec Sodium (137-145) mmol/L Potassium (3.5-5.1) mmol/L Chloride (98-107) mmol/L Carbon Dioxide (22-30) mmol/L Anion Gap mmol/L BUN (7-17) mg/dL Creatinine (0.52-1.04) mg/dL Est GFR (CKD-EPI)AfAm (>60 ml/min/1.73 sqM) Est GFR (CKD-EPI)NonAf (>60 ml/min/1.73 sqM) Glucose (74-99) mg/dL Lactic Ac Sepsis Rflx Y Plasma Lactic Acid Morales (0.7-2.0) mmol/L Calcium (8.4-10.2) mg/dL Total Bilirubin (0.2-1.3) mg/dL AST (14-36) U/L ALT (4-34) U/L Alkaline Phosphatase (38-126) U/L Troponin I (0.000-0.034) ng/mL C-Reactive Protein (<1.0) mg/dL Total Protein (6.3-8.2) g/dL Albumin (3.5-5.0) g/dL Amylase (30-110) U/L Lipase (23-300) U/L Urine Color Yellow Urine Appearance Cloudy H (Clear) Urine pH 6.5 (5.0-8.0) Ur Specific Mcdade >1.050 H (1.001-1.035) Urine Protein Trace H (Negative) Urine Glucose (UA) Negative (Negative) Urine Ketones Negative (Negative) Urine Blood Negative (Negative) Urine Nitrite Negative (Negative) Urine Bilirubin Negative (Negative) Urine Urobilinogen <2.0 (<2.0) mg/dL Ur Leukocyte Esterase Negative (Negative) Urine RBC 3 (0-5) /hpf Urine WBC 3 (0-5) /hpf Ur Squamous Epith Cells 25 H (0-4) /hpf Hyaline Casts 4 H (0-2) /lpf Urine Mucus Rare H (None) /hpf Disposition Is patient prescribed a controlled substance at d/c from ED?: No Time of Disposition: 20:24 <Rigoberto Jackson - Last Filed: 12/22/21 20:40> <Gaby Ruffin - Last Filed: 12/24/21 16:05> Clinical Impression: Abdominal pain Disposition: HOME SELF-CARE Condition: Good Instructions (If sedation given, give patient instructions): Abdominal Pain (ED) Additional Instructions: Follow-up with Dr. Garcia early next week to have your labs rechecked. Increase your fluid intake. Return to the emergency room with any new or concerning symptoms including increased pain, fevers or persistent vomiting. Referrals: Dexter Green MD [Primary Care Provider] - 1-2 days
[2021-12-22 16:43] LABS: Anisocytosis Slight; Basophils % (A) 0 %; Eosinophils % (A) 0 %; HCT 43.9 % (34.0-46.0); HGB 13.9 gm/dL (11.4-16.0); Hypochromasia Slight; Lymphocytes # (A) 1.6 k/uL (1.0-4.8); Lymphocytes % (A) 9 %; MCH 27.5 pg (25.0-35.0); MCHC 31.6 g/dL (31.0-37.0); MCV 87.1 fL (80.0-100.0); Mean Platelet Volume 7.8; Monocytes # (A) 0.4 k/uL (0-1.0); Monocytes % (A) 2 %; Neutrophils # (A) 16.6 k/uL (1.3-7.7); Neutrophils % (A) 88 %; Platelet Count 380 k/uL (150-450); RBC 5.04 m/uL (3.80-5.40); RDW 16.1 % (11.5-15.5); WBC 18.8 k/uL (3.8-10.6)
[2021-12-22 16:52] LABS: Albumin 3.7 g/dL (3.5-5.0); Calcium 8.4 mg/dL (8.4-10.2); Potassium 3.7 mmol/L (3.5-5.1); Total Bilirubin 0.9 mg/dL (0.2-1.3); Total Protein 6.7 g/dL (6.3-8.2)
[2021-12-22 17:55] LABS: INR 0.9 (<1.2); Prothrombin Time 9.9 sec (9.0-12.0)
[2021-12-22] MEDS ORDERED: SODIUM CHLORIDE 0.9% 1,000 ML IV SCH (18:15)
--- NOTE | 2021-12-22 19:04 | CT ---
EXAMINATION TYPE: CT abdomen pelvis w con DATE OF EXAM: 12/22/2021 COMPARISON: 03/13/2021 HISTORY: right sided abdominal pain CT DLP: 1329.2 mGycm Automated exposure control for dose reduction was used. CONTRAST: Performed with IV Contrast, patient injected with 100 mL of Isovue 300. There is some mild atelectasis at the lung bases. Heart appears slightly enlarged. There is no perica rdial effusion. There is no pleural effusion. There is mild fatty infiltration of the liver. There are clips from cholecystectomy. The bile ducts a re not dilated. There is fluid around the spleen. The stomach is intact. There is no pancreatic mass. There is no adrenal mass. Kidneys show satisfactory contrast opacification. There is no hydronephrosi s. Ureters are not dilated. There is some free fluid in the pelvis and in the paracolic gutters. There is no retroperitoneal adenopathy. There is no evidence of free air. There is some large bowel f luid down to the rectum. No evidence of a bowel obstruction. There is mild small bowel wall thickenin g in the mid abdomen. Uterus is anteverted. There is no pelvic mass. There is no inguinal hernia. The lumbar vertebrae have normal spacing and alignment. Posterior elements are intact. There is no compression fracture. Bony pelvis is intact. Hip joints are intact. Appendix not definitely seen. No significant appendix. IMPRESSION: There is some small bowel mild wall thickening in the mid abdomen that could relate to inflammatory b owel disease and appears knew compared to old exam. There is low-density abdominal ascites fluid whic h is increased slightly compared to old exam.
[2021-12-22 19:58] LABS: Appearance,Urine Cloudy (Clear); Bilirubin,Urine Negative (Negative); Blood,Urine Negative (Negative); Color,Urine Yellow; Glucose,Urine (UA) Negative (Negative); Hyaline Casts,Urine 4 /lpf (0-2); Ketones,Urine Negative (Negative); Leukocyte Esterase,Urine Negative (Negative); Mucus,Urine Rare /hpf; Nitrite,Urine Negative (Negative); PH, Urine 6.5 (5.0-8.0); Protein,Urine Trace (Negative); RBC,Urine 3 /hpf (0-5); Squamous Epithelial Cell,Urine 25 /hpf (0-4); Urobilinogen,Urine <2.0 mg/dL (<2.0); WBC,Urine 3 /hpf (0-5)
[2021-12-22 19:59] LABS: Specific Gravity,Urine >1.050 (1.001-1.035)
[2021-12-22 20:30] VITALS: BP 111/61; PULSE 74; RESP 16
== END 2021-12-22 20:39 | disposition home or self-care (01) ==
LOC: EC 15:13
DX: R10.84 Generalized abdominal pain (principal); I10 Essential (primary) hypertension; Z90.49 Acquired absence of other specified parts of digestive tract
CPT/HCPCS: 99284; 96360; 36415; 80053; 82150; 83605; 83690; 84484; 85025; 81001; 85610; 85730; 86140; 74177; Q9967; 93005

== ENCOUNTER 2021-12-23 22:35 | Observation (INO) | payer OTHER ==
[2021-12-23] MEDS ORDERED: SODIUM CHLORIDE 0.9% 1,000 ML IV STA (23:41)
[2021-12-23] MEDS ORDERED: ONDANSETRON 4 MG/2 ML VIAL IVP STA (23:42)
[2021-12-23] MEDS ORDERED: MORPHINE SULFATE 4 MG/ML SYRINGE IVP STA (23:42)
[2021-12-24 00:11] LABS: Basophils # (A) 0.1 k/uL (0-0.2); Basophils % (A) 0 %; Eosinophils # (A) 0.1 k/uL (0-0.7); Eosinophils % (A) 0 %; HCT 39.9 % (34.0-46.0); HGB 12.8 gm/dL (11.4-16.0); Lymphocytes # (A) 1.5 k/uL (1.0-4.8); Lymphocytes % (A) 8 %; MCH 27.8 pg (25.0-35.0); MCHC 32.2 g/dL (31.0-37.0); MCV 86.2 fL (80.0-100.0); Mean Platelet Volume 7.6; Monocytes # (A) 0.6 k/uL (0-1.0); Monocytes % (A) 3 %; Neutrophils # (A) 17.2 k/uL (1.3-7.7); Neutrophils % (A) 88 %; Platelet Count 412 k/uL (150-450); RBC 4.62 m/uL (3.80-5.40); RDW 15.8 % (11.5-15.5); WBC 19.5 k/uL (3.8-10.6)
--- NOTE | 2021-12-24 00:12 | ED ---
Recheck HPI - General Chief Complaint: Abdominal Pain Stated Complaint: Abdominal Pain Time Seen by Provider: 12/23/21 22:49 Source: patient, RN notes reviewed, old records reviewed Mode of arrival: ambulatory Limitations: no limitations - History of Present Illness Initial Comments: This is a 46-year-old female DF for evaluation. Patient presents today for evaluation of abdominal pain. Has had history of abdominal pain in the past was told she had some sort of fluid collection around her liver at the time but apparently resolved, patient has had severe abdominal pain for the last 2 days with nausea vomiting and diarrhea she had a visit to the ER yesterday and was told everything looked okay and sent home. Patient resents today for recurrent abdominal pain, severe abdominal pain unable to take a significant deep breath. MD Complaint: other (worsening pain) -: days(s) Returns Today for: persistent/worsening pain related to initial visit Symptoms Since Prior Visit: worsening pain Associated Symptoms: nausea, abdominal pain Treatments Prior to Arrival: Given Pain Meds on - Related Data Home Medications Medication Instructions Recorded Confirmed ALPRAZolam [Xanax] 0.25 mg PO TID PRN 03/13/21 12/22/21 HYDROcodone/APAP 5-325MG [[place] 1 tab PO Q6HR PRN 03/13/21 12/22/21 5-325] Lisinopril-Hctz 20-12.5 mg 1 tab PO DAILY 12/22/21 12/22/21 [Zestoretic 20-12.5] Norg-Ethin Estradiol 0.25-0.035mg 1 tab PO DAILY 12/22/21 12/22/21 Pedi Multivit No.25/Folic Acid 1 tab PO DAILY 12/22/21 12/22/21 [Flintstones Multivit Chew Tab] Allergies Allergy/AdvReac Type Severity Reaction Status Date / Time No Known Allergies Allergy Verified 12/23/21 22:41 Review of Systems ROS Statement: Those systems with pertinent positive or pertinent negative responses have been documented in the HPI. ROS Other: All systems not noted in ROS Statement are negative. Past Medical History Past Medical History: Cancer, Hypertension Additional Past Medical History / Comment(s): melanoma History of Any Multi-Drug Resistant Organisms: None Reported Past Surgical History: Cholecystectomy Past Anesthesia/Blood Transfusion Reactions: No Reported Reaction Past Psychological History: No Psychological Hx Reported Smoking Status: Never smoker Past Alcohol Use History: None Reported Past Drug Use History: None Reported - Past Family History Father Family Medical History: Coronary Artery Disease (CAD), Hypertension Additional Family Medical History / Comment(s): Father is . Mother Family Medical History: Hyperlipidemia, Hypertension, Thyroid Disorder General Exam Limitations: no limitations General appearance: alert, in no apparent distress Head exam: Present: atraumatic, normocephalic, normal inspection Eye exam: Present: normal appearance, PERRL, EOMI. Absent: scleral icterus, conjunctival injection, periorbital swelling ENT exam: Present: normal exam, mucous membranes moist Neck exam: Present: normal inspection. Absent: tenderness, meningismus, lymphadenopathy Respiratory exam: Present: normal lung sounds bilaterally. Absent: respiratory distress, wheezes, rales, rhonchi, stridor Cardiovascular Exam: Present: regular rate, normal rhythm, normal heart sounds. Absent: systolic murmur, diastolic murmur, rubs, gallop, clicks GI/Abdominal exam: Present: tenderness, guarding, normal bowel sounds. Absent: distended, rebound, rigid Extremities exam: Present: normal inspection, full ROM, normal capillary refill. Absent: tenderness, pedal edema, joint swelling, calf tenderness Back exam: Present: normal inspection Neurological exam: Present: alert, oriented X3, CN II-XII intact Psychiatric exam: Present: normal affect, normal mood Skin exam: Present: warm, dry, intact, normal color. Absent: rash Course Vital Signs 12/23/21 12/23/21 22:39 23:26 Temperature 99.0 F Pulse Rate 121 H 104 H Respiratory 22 20 Rate Blood Pressure 125/52 O2 Sat by Pulse 97 Oximetry - Reevaluation(s) Reevaluation #1: 12/24/21 01:18 Medical record is reviewed Yesterday's ER visit is reviewed Reevaluation #2: 12/24/21 01:18 Patient is currently able relax as of bowel pain control a difficult to control Reevaluation #3: 12/24/21 01:18 Patient informed results questions answered - Consultations Consultation #1: Spoke with sound physicians will admit this patient Medical Decision Making - Medical Decision Making 46 female with recurrent abdominal pain nausea vomiting and diarrhea. Patient be admitted for surgical consultation and evaluation - Lab Data Result diagrams: 12/23/21 23:46 12/23/21 23:46 Lab Results 12/23/21 12/23/21 Range/Units 23:46 23:46 WBC 19.5 H (3.8-10.6) k/uL RBC 4.62 (3.80-5.40) m/uL Hgb 12.8 (11.4-16.0) gm/dL Hct 39.9 (34.0-46.0) % MCV 86.2 (80.0-100.0) fL MCH 27.8 (25.0-35.0) pg MCHC 32.2 (31.0-37.0) g/dL RDW 15.8 H (11.5-15.5) % Plt Count 412 (150-450) k/uL MPV 7.6 Neutrophils % 88 % Lymphocytes % 8 % Monocytes % 3 % Eosinophils % 0 % Basophils % 0 % Neutrophils # 17.2 H (1.3-7.7) k/uL Lymphocytes # 1.5 (1.0-4.8) k/uL Monocytes # 0.6 (0-1.0) k/uL Eosinophils # 0.1 (0-0.7) k/uL Basophils # 0.1 (0-0.2) k/uL Sodium 137 (137-145) mmol/L Potassium 3.3 L (3.5-5.1) mmol/L Chloride 102 (98-107) mmol/L Carbon Dioxide 23 (22-30) mmol/L Anion Gap 12 mmol/L BUN 13 (7-17) mg/dL Creatinine 0.87 (0.52-1.04) mg/dL Est GFR (CKD-EPI)AfAm >90 (>60 ml/min/1.73 sqM) Est GFR (CKD-EPI)NonAf 80 (>60 ml/min/1.73 sqM) Glucose 151 H (74-99) mg/dL Calcium 8.7 (8.4-10.2) mg/dL Phosphorus 2.7 (2.5-4.5) mg/dL Magnesium 1.9 (1.6-2.3) mg/dL Total Bilirubin 0.9 (0.2-1.3) mg/dL AST 18 (14-36) U/L ALT 12 (4-34) U/L Alkaline Phosphatase 61 (38-126) U/L Total Protein 6.8 (6.3-8.2) g/dL Albumin 3.7 (3.5-5.0) g/dL Amylase 50 (30-110) U/L Lipase 73 (23-300) U/L Disposition Clinical Impression: Abdominal pain, Nausea & vomiting, Diarrhea, Leukocytosis Disposition: ADMITTED IP TO THIS [facility] Condition: Good Referrals: Dexter Green MD [Primary Care Provider] - 1-2 days
[2021-12-24 00:20] LABS: ALT 12 U/L (4-34); AST 18 U/L (14-36); African American GFR (CKD) >90 (>60 ml/min/1.73 sqM); Albumin 3.7 g/dL (3.5-5.0); Alkaline Phosphatase 61 U/L (38-126); Amylase 50 U/L (30-110); Anion Gap 12 mmol/L; Blood Urea Nitrogen 13 mg/dL (7-17); Calcium 8.7 mg/dL (8.4-10.2); Carbon Dioxide 23 mmol/L (22-30); Chloride 102 mmol/L (98-107); Glucose 151 mg/dL (74-99); Lipase 73 U/L (23-300); Magnesium 1.9 mg/dL (1.6-2.3); Non-African American GFR(CKD) 80 (>60 ml/min/1.73 sqM); Phosphorus 2.7 mg/dL (2.5-4.5); Potassium 3.3 mmol/L (3.5-5.1); Sodium 137 mmol/L (137-145); Total Bilirubin 0.9 mg/dL (0.2-1.3); Total Protein 6.8 g/dL (6.3-8.2)
[2021-12-24] MEDS ORDERED: ONDANSETRON 4 MG/2 ML VIAL IVP PRN ×2 (01:13→10:46)
[2021-12-24] MEDS ORDERED: POTASSIUM BICARBONATE/CIT AC 20 MEQ TABLET.EFF PO ONE (01:13)
[2021-12-24] MEDS ORDERED: MORPHINE SULFATE 4 MG/ML SYRINGE IV PRN (01:13)
[2021-12-24] MEDS ORDERED: LORazepam 2 MG/ML INJ IV PRN (01:13)
[2021-12-24] MEDS ORDERED: NALOXONE 0.4 MG/ML 1 ML VIAL IV PRN (01:13)
[2021-12-24] MEDS: SODIUM CHLORIDE 0.9% 1,000 ML IV SCH ×3 (04:09→16:42)
[2021-12-24] MEDS: PANTOPRAZOLE 40 MG/10 ML VIAL IV SCH (07:24)
[2021-12-24 07:41] LABS: Amorphous Sediment,Urine Moderate /hpf; Appearance,Urine Turbid (Clear); Bacteria,Urine Rare /hpf; Bilirubin,Urine Negative (Negative); Blood,Urine Negative (Negative); Color,Urine Yellow; Glucose,Urine (UA) Negative (Negative); Ketones,Urine 1+ (Negative); Leukocyte Esterase,Urine Negative (Negative); Mucus,Urine Many /hpf; Nitrite,Urine Negative (Negative); Protein,Urine 1+ (Negative); RBC,Urine 3 /hpf (0-5); Specific Gravity,Urine 1.034 (1.001-1.035); Squamous Epithelial Cell,Urine 5 /hpf (0-4); Urobilinogen,Urine <2.0 mg/dL (<2.0); WBC,Urine 3 /hpf (0-5)
[2021-12-24] MEDS ORDERED: ALPRAZolam 0.25 MG TAB PO PRN (10:01)
[2021-12-24] MEDS ORDERED: HYDROcodone/APAP 5-325MG 1 EACH TAB PO PRN (10:01)
--- NOTE | 2021-12-24 10:59 | P.HPIM ---
History of Present Illness 12/24/2021 Patient is a pleasant 46-year-old female came in with complains of nausea vomiting diarrhea has been going on for about 3-4 days her abdominal pain is moderate severity crampy is alert and in nature diffuse and nonradiating. Patient is still having diarrhea today still having nausea didn't throw up today. Patient came to ER was diagnosed with viral gastroenteritis was discharged home because of continued symptoms patient came back to ER CT of the abdomen was obtained during her previous visit here at that time it showed some small bowel inflammation. Patient denied any fever chills patient in any body aches. On the CT there is a concern about inflammatory bowel disease as well. Patient denied any family history of inflammatory bowel disease. Patient does have leukocytosis. REVIEW OF SYSTEMS: CONSTITUTIONAL: No fever, no malaise, no fatigue. HEENT: No recent visual problems or hearing problems. Denied any sore throat. CARDIOVASCULAR: No chest pain, orthopnea, PND, no palpitations, no syncope. PULMONARY: No shortness of breath, no cough, no hemoptysis. GASTROINTESTINAL: As mentioned in HPI NEUROLOGICAL: No headaches, no weakness, no numbness. HEMATOLOGICAL: Denies any bleeding or petechiae. GENITOURINARY: Denies any burning micturition, frequency, or urgency. MUSCULOSKELETAL/RHEUMATOLOGICAL: Denies any joint pain, swelling, or any muscle pain. ENDOCRINE: Denies any polyuria or polydipsia. The rest of the 14-point review of systems is negative. PHYSICAL EXAMINATION: GENERAL: The patient is alert and oriented x3, not in any acute distress. Well developed, well nourished. HEENT: Pupils are round and equally reacting to light. EOMI. No scleral icterus. No conjunctival pallor. Normocephalic, atraumatic. No pharyngeal erythema. No thyromegaly. CARDIOVASCULAR: S1 and S2 present. No murmurs, rubs, or gallops. PULMONARY: Chest is clear to auscultation, no wheezing or crackles. ABDOMEN: Distended without any significant tenderness nondistended, normoactive bowel sounds. No palpable organomegaly. MUSCULOSKELETAL: No joint swelling or deformity. EXTREMITIES: No cyanosis, clubbing, or pedal edema. NEUROLOGICAL: Gross neurological examination did not reveal any focal deficits. SKIN: No rashes. Assessment and plan -Abdominal pain nausea vomiting diarrhea: Most probably viral gastroenteritis patient will be continued on IV fluids will monitor her overnight. Although low possibility a cannot completely rule out inflammatory bowel disease. Patient probably should follow with gastroenterology for endoscopies as an outpatient. -Hypertension patient blood pressure is actually on the lower side of her temporally hold off on antidepressant medications -Leukocytosis: Secondary to assessment #1 -History of melanoma in the past DVT prophylaxis ambulation Past Medical History Past Medical History: Cancer, Hypertension Additional Past Medical History / Comment(s): melanoma History of Any Multi-Drug Resistant Organisms: None Reported Past Surgical History: Cholecystectomy Additional Past Surgical History / Comment(s): Lympth nodes removed on left groin for melanoma. Skin removed on left leg and back for melanoma. Past Anesthesia/Blood Transfusion Reactions: No Reported Reaction Past Psychological History: No Psychological Hx Reported Additional Psychological History / Comment(s): Pt resides with another adult. She is independent. Smoking Status: Never smoker Past Alcohol Use History: None Reported Past Drug Use History: None Reported - Past Family History Father Family Medical History: Coronary Artery Disease (CAD), Hypertension Additional Family Medical History / Comment(s): Father is . Mother Family Medical History: Hyperlipidemia, Hypertension, Thyroid Disorder Medications and Allergies Home Medications Medication Instructions Recorded Confirmed Type ALPRAZolam [Xanax] 0.25 mg PO TID PRN 03/13/21 12/22/21 History HYDROcodone/APAP 5-325MG [[place] 1 tab PO Q6HR PRN 03/13/21 12/22/21 History 5-325] Lisinopril-Hctz 20-12.5 mg 1 tab PO DAILY 12/22/21 12/22/21 History [Zestoretic 20-12.5] Norg-Ethin Estradiol 0.25-0.035mg 1 tab PO DAILY 12/22/21 12/22/21 History Pedi Multivit No.25/Folic Acid 1 tab PO DAILY 12/22/21 12/22/21 History [Flintstones Multivit Chew Tab] Allergies Allergy/AdvReac Type Severity Reaction Status Date / Time No Known Allergies Allergy Verified 12/23/21 22:41 Physical Exam Vitals: Vital Signs Temp Pulse Pulse Resp BP BP Pulse Ox 12/24/21 08:00 98.4 F 65 18 109/71 94 L 12/24/21 03:13 82 20 12/24/21 02:13 98.1 F 82 20 132/82 94 L 12/24/21 01:58 69 18 121/67 12/23/21 23:26 104 H 20 97 12/23/21 22:39 99.0 F 121 H 22 125/52 Intake and Output 12/23/21 12/24/21 12/24/21 22:59 06:59 14:59 Other: Voiding Method Toilet Toilet # Voids 0 Weight 97.522 kg 97.27 kg Results CBC & Chem 7: 12/23/21 23:46 12/23/21 23:46 Labs: Abnormal Lab Results - Last 24 Hours (Table) 12/23/21 12/23/21 12/24/21 Range/Units 23:46 23:46 07:10 WBC 19.5 H (3.8-10.6) k/uL RDW 15.8 H (11.5-15.5) % Neutrophils # 17.2 H (1.3-7.7) k/uL Potassium 3.3 L (3.5-5.1) mmol/L Glucose 151 H (74-99) mg/dL Urine Appearance Turbid H (Clear) Urine Protein 1+ H (Negative) Urine Ketones 1+ H (Negative) Ur Squamous Epith Cells 5 H (0-4) /hpf Amorphous Sediment Moderate H (None) /hpf Urine Bacteria Rare H (None) /hpf Urine Mucus Many H (None) /hpf Thrombosis Risk Factor Assmnt - Choose All That Apply Each Factor Represents 1 point: Age 41-60 years, Obesity (BMI >25) Thrombosis Risk Factor Assessment Total Risk Factor Score: 2 Thrombosis Risk Factor Assessment Level: Low Risk
--- NOTE | 2021-12-24 12:15 | P.GSCN ---
History of Present Illness Consult date: 12/24/21 Reason for Consult: Abdominal pain, nausea vomiting and diarrhea, leukocytosis, inflammation of small bowel visualized on CT History of present illness: Patient is a 46-year-old lady who presented to [facility] emergency department around midnight on 12/24/2021 with complaints of persistence and worsening diffuse abdominal pains of around 72 hours duration accompanied by nausea, nonbloody emesis and multiple bouts of diarrhea without signs of GI bleeding. She denies associated fever or chills. She has not been on antibiotics recently. She was seen in the emergency department 48 hours ago, diagnosed empirically with infectious gastroenteritis. A computed tomography scan of the abdomen and pelvis at that time showed some low-density ascites over the liver, around the spleen and into the pelvis. She has history of intra-ab dominal fluid seen on previous imaging around a year ago. At that time there wasn't enough of of a fluid collection to pursue with paracentesis. With bowel rest and overnight IV fluids her pain has completely subsided. She is still having some waxing and waning nausea and diarrhea, however. She's been tolerating clear liquids for the most part. She's never undergone any manner of endoscopy. Has no known personal history of inflammatory bowel disease, peptic ulcer disease, celiac sprue or H. pylori infection. She's not maintained on any manner of oral anticoagulants, does not take nonsteroidal medications as needed for pain. Medical history is significant for melanoma the lower extremity diagnosed around a year ago treated with excision and what sounds like sentinel node biopsy or lymph node dissection. She did not require radiation or chemotherapy. Laboratory studies on presentation were significant for white blood cell count of 19.5 with a mild left shift. Hemoglobin was normal at 12.8, platelet count normal at 412. MCV and MCH indices were within normal limits at 86.2 and 27.8 respectively. RDW was slightly high at 15.8. Serum electrolyte analysis was significant only for a mildly low potassium at 3.3. Liver function studies were all within normal limits. Urinalysis shows proteinuria and ketones without evidence of urinary tract infection. Review of Systems All systems: negative - Constitutional Reports as per HPI Past Medical History Past Medical History: Cancer, Hypertension Additional Past Medical History / Comment(s): melanoma History of Any Multi-Drug Resistant Organisms: None Reported Past Surgical History: Cholecystectomy Additional Past Surgical History / Comment(s): Lympth nodes removed on left groin for melanoma. Skin removed on left leg and back for melanoma. Past Anesthesia/Blood Transfusion Reactions: No Reported Reaction Past Psychological History: No Psychological Hx Reported Additional Psychological History / Comment(s): Pt resides with another adult. She is independent. Smoking Status: Never smoker Past Alcohol Use History: None Reported Past Drug Use History: None Reported - Past Family History Father Family Medical History: Coronary Artery Disease (CAD), Hypertension Additional Family Medical History / Comment(s): Father is . Mother Family Medical History: Hyperlipidemia, Hypertension, Thyroid Disorder Medications and Allergies Home Medications Medication Instructions Recorded Confirmed Type ALPRAZolam [Xanax] 0.25 mg PO TID PRN 03/13/21 12/22/21 History HYDROcodone/APAP 5-325MG [[place] 1 tab PO Q6HR PRN 03/13/21 12/22/21 History 5-325] Lisinopril-Hctz 20-12.5 mg 1 tab PO DAILY 12/22/21 12/22/21 History [Zestoretic 20-12.5] Norg-Ethin Estradiol 0.25-0.035mg 1 tab PO DAILY 12/22/21 12/22/21 History Pedi Multivit No.25/Folic Acid 1 tab PO DAILY 12/22/21 12/22/21 History [Flintstones Multivit Chew Tab] Allergies Allergy/AdvReac Type Severity Reaction Status Date / Time No Known Allergies Allergy Verified 12/23/21 22:41 Surgical - Exam Osteopathic Statement: *. No significant issues noted on an osteopathic structural exam other than those noted in the History and Physical/Consult. Vital Signs Temp Pulse Resp BP 99.0 F 121 H 22 125/52 12/23/21 22:39 12/23/21 22:39 12/23/21 22:39 12/23/21 22:39 - General well developed - Eyes PERRL, normal ocular movement - ENT no hearing loss - Neck trachea midline - Respiratory normal expansion, normal respiratory effort, clear to auscultation - Cardiovascular Rhythm: regular - Abdomen Abdomen is soft, nontender to palpation, no guarding rebound or distention. No evidence of ventral hernia. No evidence of peritonitis. No clinical signs of jaundice. - Integumentary no rash - Neurologic normal coordination, normal sensation - Psychiatric oriented to time, oriented to person, oriented to place, speech is normal, memory intact Results - Labs 12/23/21 23:46 12/23/21 23:46 Abnormal Lab Results - Last 24 Hours (Table) 12/23/21 12/23/21 12/24/21 Range/Units 23:46 23:46 07:10 WBC 19.5 H (3.8-10.6) k/uL RDW 15.8 H (11.5-15.5) % Neutrophils # 17.2 H (1.3-7.7) k/uL Potassium 3.3 L (3.5-5.1) mmol/L Glucose 151 H (74-99) mg/dL Urine Appearance Turbid H (Clear) Urine Protein 1+ H (Negative) Urine Ketones 1+ H (Negative) Ur Squamous Epith Cells 5 H (0-4) /hpf Amorphous Sediment Moderate H (None) /hpf Urine Bacteria Rare H (None) /hpf Urine Mucus Many H (None) /hpf Diabetes panel 12/23/21 Range/Units 23:46 Sodium 137 (137-145) mmol/L Potassium 3.3 L (3.5-5.1) mmol/L Chloride 102 (98-107) mmol/L Carbon Dioxide 23 (22-30) mmol/L BUN 13 (7-17) mg/dL Creatinine 0.87 (0.52-1.04) mg/dL Glucose 151 H (74-99) mg/dL Calcium 8.7 (8.4-10.2) mg/dL AST 18 (14-36) U/L ALT 12 (4-34) U/L Alkaline Phosphatase 61 (38-126) U/L Total Protein 6.8 (6.3-8.2) g/dL Albumin 3.7 (3.5-5.0) g/dL Calcium panel 12/23/21 Range/Units 23:46 Calcium 8.7 (8.4-10.2) mg/dL Phosphorus 2.7 (2.5-4.5) mg/dL Albumin 3.7 (3.5-5.0) g/dL Pituitary panel 12/23/21 Range/Units 23:46 Sodium 137 (137-145) mmol/L Potassium 3.3 L (3.5-5.1) mmol/L Chloride 102 (98-107) mmol/L Carbon Dioxide 23 (22-30) mmol/L BUN 13 (7-17) mg/dL Creatinine 0.87 (0.52-1.04) mg/dL Glucose 151 H (74-99) mg/dL Calcium 8.7 (8.4-10.2) mg/dL Adrenal panel 12/23/21 Range/Units 23:46 Sodium 137 (137-145) mmol/L Potassium 3.3 L (3.5-5.1) mmol/L Chloride 102 (98-107) mmol/L Carbon Dioxide 23 (22-30) mmol/L BUN 13 (7-17) mg/dL Creatinine 0.87 (0.52-1.04) mg/dL Glucose 151 H (74-99) mg/dL Calcium 8.7 (8.4-10.2) mg/dL Total Bilirubin 0.9 (0.2-1.3) mg/dL AST 18 (14-36) U/L ALT 12 (4-34) U/L Alkaline Phosphatase 61 (38-126) U/L Total Protein 6.8 (6.3-8.2) g/dL Albumin 3.7 (3.5-5.0) g/dL - Imaging CT scan - abdomen: report reviewed, image reviewed Assessment and Plan Assessment: 46-year-old lady with presenting diffuse abdominal pains, nausea, vomiting, and diarrhea. Hemodynamically stable, no evidence of peritonitis on exam. Computed tomography scan on previous presentation to the emergency department consistent with an infectious enteritis. Small amounts of low density ascites on CT of unclear significance. Previous similar intra-abdominal fluid seen on ultrasound around a year ago. No free air, no evidence of organized abscess formation on CT. May relate to new presentation of inflammatory bowel disease or Crohn's, that seems less likely than infectious enteritis. Symptoms have nearly completely resolved with IV fluids, bowel rest, pain and nausea medications. Plan: Continue with supportive care, no indications for surgical intervention at present. Will follow. Given her presenting history it may be worthwhile to exclude Clostridium difficile. If she has a persistent leukocytosis after 24 hours I'd further look into the more typical infectious pathogens with stool samples and empiric broad-spectrum antibiotics. If she has interval worsening of pain we'll repeat CT with oral and IV contrast. If this is a recurrent issue for her in the coming weeks we should consider GI evaluation to look further into potential inflammatory bowel disease. Time with Patient: Greater than 30
[2021-12-25 07:39] VITALS: RESP 18; TEMP 98.7
[2021-12-25] MEDS: PANTOPRAZOLE 40 MG/10 ML VIAL IV SCH (08:24)
[2021-12-25] MEDS: SODIUM CHLORIDE 0.9% 1,000 ML IV SCH (08:25)
[2021-12-25 08:55] LABS: Basophils # (A) 0.04 X 10*3/uL (0.00-0.10); Basophils % (A) 0.7 %; Eosinophils # (A) 0.08 X 10*3/uL (0.04-0.35); Eosinophils % (A) 1.3 %; HCT 30.1 % (37.2-46.3); Immature Grans, Automated 0.3 %; Lymphocytes # (A) 2.02 X 10*3/uL (0.90-5.00); Lymphocytes % (A) 33.2 %; MCH 26.6 pg (27.0-32.0); MCHC 29.9 g/dL (32.0-37.0); MCV 89.1 fL (80.0-97.0); Mean Platelet Volume 9.6 fL (9.5-12.2); Monocytes # (A) 0.34 X 10*3/uL (0.20-1.00); Monocytes % (A) 5.6 %; NRBC Per 100 WBC 0 /100 WBCS (0.0-0.0); Neutrophils # (A) 3.58 X 10*3/uL (1.80-7.70); Neutrophils % (A) 58.9 %; Platelet Count 200 X 10*3/uL (140-440); RBC 3.38 X 10*6/uL (4.10-5.20); WBC 6.08 X 10*3/uL (4.50-10.00)
[2021-12-25 09:12] LABS: African American GFR (CKD) 120.4 (60.0-200.0); Albumin 3.3 g/dL (3.8-4.9); Albumin/Globulin Ratio 1.5 (1.60-3.17); Anion Gap 10.4 mmol/L (10.00-18.00); BUN/Creat Ratio 11.57 Ratio (12.00-20.00); Blood Urea Nitrogen 8.1 mg/dL (9.0-27.0); Calcium 7.7 mg/dL (8.7-10.3); Carbon Dioxide 21.6 mmol/L (20.0-27.5); Globulin 2.2 g/dL (1.6-3.3); Non-African American GFR(CKD) 103.9 (60.0-200.0); Phosphorus 2.2 mg/dL (2.4-5.1); Potassium 3.2 mmol/L (3.5-5.5); Total Bilirubin 0.2 mg/dL (0.30-1.20); Total Protein 5.5 g/dL (6.2-8.2)
[2021-12-25] MEDS ORDERED: Potassium Replacement Protocol 1 EACH MISC MISCELLANE PRN (09:59)
[2021-12-25] MEDS: POTASSIUM CHLORIDE ER 20 MEQ TAB.ER PO SCH ×2 (10:17→12:11)
--- NOTE | 2021-12-25 11:44 | P.DS ---
Providers Date of admission: 12/24/21 01:13 Attending physician: Yamilet Reddy Consults: 12/24/21 01:13 Consult Physician Routine Consulting Provider: Cuba Fowler Consult Reason/Comments: Jelly Do you want consulting provider notified?: Yes Primary care physician: [facility] Course: Patient is a pleasant 46-year-old female came in with complains of nausea vomiting diarrhea has been going on for about 3-4 days her abdominal pain is moderate severity crampy is alert and in nature diffuse and nonradiating. Patient is still having diarrhea today still having nausea didn't throw up today. Patient came to ER was diagnosed with viral gastroenteritis was discharged home because of continued symptoms patient came back to ER CT of the abdomen was obtained during her previous visit here at that time it showed some small bowel inflammation. Patient denied any fever chills patient in any body aches. On the CT there is a concern about inflammatory bowel disease as well. Patient denied any family history of inflammatory bowel disease. Patient does have leukocytosis. 12/25/2021 Patient's nausea vomiting improved abdominal pain completely resolved, patient had couple episodes of diarrhea today with chair is small stools. Patient is hypokalemic secondary to diarrhea IV fluids and hydrochlorothiazide potassium is being replaced at this time. If patient doesn't have any significant diarrhea by later today patient will be discharged. Patient had C. diff testing which was negative. Patient blood pressure is normal and the patient was not started on her antidepressant medication patient is on this medication for about 36 hours in spite of which her blood pressure is within normal limits because of which I'll discontinue her home hydrochlorothiazide, cut down the dose of lisinopril because I believe her blood pressure was started going up again. Patient the leukocytosis improved presently 6.08. Patient will be referred to gastritis or use an outpatient for mild ascites, etiology of which is not known and as there is a concern of the inflammatory bowel disease although possibility is low. PHYSICAL EXAMINATION: GENERAL: The patient is alert and oriented x3, not in any acute distress. Well developed, well nourished. HEENT: Pupils are round and equally reacting to light. EOMI. No scleral icterus. No conjunctival pallor. Normocephalic, atraumatic. No pharyngeal erythema. No thyromegaly. CARDIOVASCULAR: S1 and S2 present. No murmurs, rubs, or gallops. PULMONARY: Chest is clear to auscultation, no wheezing or crackles. ABDOMEN: Distended without any significant tenderness nondistended, normoactive bowel sounds. No palpable organomegaly. MUSCULOSKELETAL: No joint swelling or deformity. EXTREMITIES: No cyanosis, clubbing, or pedal edema. NEUROLOGICAL: Gross neurological examination did not reveal any focal deficits. SKIN: No rashes. Assessment and plan -Abdominal pain nausea vomiting diarrhea: Most probably viral gastroenteritis patient will be continued on IV fluids will monitor her overnight. Although low possibility a cannot completely rule out inflammatory bowel disease. Patient probably should follow with gastroenterology for endoscopies as an outpatient. -Hypertension -Leukocytosis: Secondary to assessment #1, improved now -History of melanoma in the past Patient Condition at Discharge: Good Plan - Discharge Summary Discharge Rx Participant: No New Discharge Prescriptions: New Loperamide [Imodium] 2 mg PO TID #20 capsule Lisinopril [Prinivil] 10 mg PO DAILY #30 tab Continue ALPRAZolam [Xanax] 0.25 mg PO TID PRN PRN Reason: Anxiety HYDROcodone/APAP 5-325MG [[place] 5-325] 1 tab PO Q6HR PRN PRN Reason: Pain Pedi Multivit No.25/Folic Acid [[place] Multivit Chew Tab] 300 mcg PO DAILY Norg-Ethin Estradiol 0.25-0.035mg 1 tab PO DAILY Ketoconazole 2% Cream [Nizoral 2%] 1 applic TOPICAL BID PRN PRN Reason: RIGHT FOOT REDNESS Discontinued Lisinopril-Hctz 20-12.5 mg [Zestoretic 20-12.5] 1 tab PO DAILY Discharge Medication List ALPRAZolam [Xanax] 0.25 mg PO TID PRN 03/13/21 [History] HYDROcodone/APAP 5-325MG [[place] 5-325] 1 tab PO Q6HR PRN 03/13/21 [History] Norg-Ethin Estradiol 0.25-0.035mg 1 tab PO DAILY 12/22/21 [History] Pedi Multivit No.25/Folic Acid [[place]stones Multivit Chew Tab] 300 mcg PO DAILY 12/22/21 [History] Ketoconazole 2% Cream [Nizoral 2%] 1 applic TOPICAL BID PRN 12/24/21 [History] Lisinopril [Prinivil] 10 mg PO DAILY #30 tab 12/25/21 [Rx] Loperamide [Imodium] 2 mg PO TID #20 capsule 12/25/21 [Rx] Follow up Appointment(s)/Referral(s): Cleopatra Herrera MD [STAFF PHYSICIAN] - 1 Week Dexter Green MD [Primary Care Provider] - 3 Days
--- NOTE | 2021-12-25 11:52 | P.PN ---
Subjective Progress Note Date: 12/25/21 Principal diagnosis: Abdominal pain, leukocytosis, diarrhea, history of melanoma Patient seen and examined at bedside. Feeling about the same today as yesterday. No complaint of abdominal pain. Had a few bouts of diarrhea this morning, no signs of GI bleeding. Has been tolerating clear liquids, appetite is minimal. Denies orthostatic symptoms. He is up to chair. Question for cell screen was negative. Laboratory studies today show normalization for blood cell count 6.8, hemoglobin slightly low at 9.0, platelet count normal range at 200. Serum lites show analysis reflect a persistent hyponatremia at 3.2 in spite of replacement. Creatinine is normal range is 0.7, sodium acceptable 140. Phosphorus a bit low at 2.2, magnesium normal range at 2. Liver function st udies all within normal limits, albumin slightly low at 3.3. Patient's remained hemodynamically stable and afebrile overnight. Objective - Vital Signs Vital signs: Vital Signs Temp 98.7 F 12/25/21 07:39 Pulse 61 12/25/21 07:39 Resp 18 12/25/21 07:39 BP 129/82 12/25/21 07:39 Pulse Ox 92 L 12/25/21 07:39 Intake & Output 12/24/21 12/25/21 12/25/21 18:59 06:59 18:59 Other: Voiding Method Toilet Toilet # Voids 3 3 # Bowel Movements 9 - EENT Eyes: Present: PERRLA - Respiratory Respiratory: bilateral: CTA - Cardiovascular Rhythm: regular - Gastrointestinal Gastrointestinal Comment(s): Abdomen soft, nontender to palpation, no guarding rebound or distention. - Neurologic Neurologic: Present: CNII-XII intact - Musculoskeletal Musculoskeletal: Present: strength equal bilaterally - Psychiatric Psychiatric: Present: A&O x's 3, appropriate affect, intact judgment & insight - Labs CBC & Chem 7: 12/25/21 05:24 12/25/21 05:24 Labs: Abnormal Lab Results - Last 24 Hours (Table) 12/25/21 12/25/21 Range/Units 05:24 05:24 RBC 3.38 L (4.10-5.20) X 10*6/uL Hgb 9.0 L (12.0-15.0) g/dL Hct 30.1 L (37.2-46.3) % MCH 26.6 L (27.0-32.0) pg MCHC 29.9 L (32.0-37.0) g/dL RDW 16.0 H (11.5-14.5) % Potassium 3.2 L (3.5-5.5) mmol/L BUN 8.1 L (9.0-27.0) mg/dL BUN/Creatinine Ratio 11.57 L (12.00-20.00) Ratio Calcium 7.7 L (8.7-10.3) mg/dL Phosphorus 2.2 L (2.4-5.1) mg/dL Total Bilirubin 0.20 L (0.30-1.20) mg/dL Total Protein 5.5 L (6.2-8.2) g/dL Albumin 3.3 L (3.8-4.9) g/dL Albumin/Globulin Ratio 1.50 L (1.60-3.17) g/dL Assessment and Plan Assessment: 46-year-old lady with presenting diffuse abdominal pains, nausea, vomiting, and diarrhea. Hemodynamically stable, no evidence of peritonitis on exam. Computed tomography scan on previous presentation to the emergency department consistent with an infectious enteritis. Small amounts of low density ascites on CT of unclear significance. Previous similar intra-abdominal fluid seen on ultrasound around a year ago. No free air, no evidence of organized abscess formation on CT. May relate to new presentation of inflammatory bowel disease or Crohn's, that seems less likely than infectious enteritis. Symptoms have nearly completely resolved with IV fluids, bowel rest, pain and nausea medications. Plan: No acute surgical indications at present, agree with discharge planning for this afternoon. If persistent issues with diarrhea and abdominal pain over the next few weeks would recommend a more complete workup for infectious enteritis with stool studies for infection and fecal leukocytes, calprotectin and referral to GI to entertain potential inflammatory bowel disease and work through the differential diagnosis thereof. I asked her to follow up with her oncologist to see about continuing to follow this persistent although mild intra-abdominal ascites in the setting of a previous diagnosis of melanoma. If it is something that looks accessible and a follow-up ultrasound an image guided aspiration co uld help shed light on this. Time with Patient: Less than 30
[2021-12-25 14:35] VITALS: BP 119/79; PULSE 66
== END 2021-12-25 15:17 | disposition home or self-care (01) ==
LOC: EC 22:35 → 4SSUR 12-24 01:13 → INTOOBSV 12-24 01:13 → 4SSUR 12-24 01:55 → UNDODISIN 12-25 15:17
PROVIDERS: ADMIT Hospitalist; ATTEND Hospitalist
DX: R10.9 Unspecified abdominal pain (principal); E87.1 Hypo-osmolality and hyponatremia; E87.6 Hypokalemia; D72.829 Elevated white blood cell count, unspecified; I10 Essential (primary) hypertension; R11.2 Nausea with vomiting, unspecified; R18.8 Other ascites; R80.9 Proteinuria, unspecified; R19.7 Diarrhea, unspecified; E66.9 Obesity, unspecified; Z68.38 Body mass index [BMI] 38.0-38.9, adult; Z79.899 Other long term (current) drug therapy; Z90.49 Acquired absence of other specified parts of digestive tract; Z85.820 Personal history of malignant melanoma of skin; Z98.890 Other specified postprocedural states; Z82.49 Family history of ischemic heart disease and other diseases of the circulatory system; Z83.49 Family history of other endocrine, nutritional and metabolic diseases
CPT/HCPCS: 96376 ×2; 96361 ×4; 96375 ×2; 96374; 99285; 36415; 80053 ×2; 82150; 83690; 83735 ×2; 84100 ×2; 84132; 85025 ×2; 81001; 87324; G0378 ×2; J2270; J2405 ×2; C9113 ×2; 99284